=== PATIENT | female | born 1970 | race Caucasian/White ===

== ENCOUNTER 2018-01-19 11:19 | Emergency (ER) | payer BC ==
--- NOTE | 2018-01-19 12:07 | EKG ---
Test Date: 2018-01-19 Test Time: 11:37:29 Senior Electronics Technician: DELORIS MEASUREMENT RESULTS: Intervals: Rate: 103 MO: 148 QRSD: 78 QT: 330 QTc: 432 [place]: P: 70 MO: 148 QRS: 62 T: 43 INTERPRETIVE STATEMENTS: Sinus tachycardia Otherwise normal ECG No previous ECG available for comparison Electronically Signed On 01-19-18 12:06:59 CDT by Eddie Triplett
[2018-01-19 12:09] LABS: Absolute Lymphocytes (CBC) 2.4 K/uL (0.7-4.9); Absolute Monocytes 0.8 K/uL (0.1-1.3); Absolute Neutrophil 11.6 K/uL (1.8-8.0); Basophils % 0.8 % (0-1.3); Eosinophils % 0.9 % (0-4.4); Hematocrit 42.6 % (36.0-45.0); Lymphocytes % 15.9 % (15.3-44.8); MCH 33.4 pg (27.0-35.0); MCV 93.5 fL (80-100); MPV 9.9 fL (7.6-11.3); Monocytes % 5.5 % (3.3-12.3); RBC Red Blood Cell Count 4.56 M/uL (3.86-4.86)
[2018-01-19 12:14] LABS: Protime INR 1.07
[2018-01-19 12:44] LABS: CKMB Creatine Kinase MB 1.3 ng/ml (0.3-4.0); Glucose Level 136 mg/dL (65-120)
[2018-01-19 12:50] LABS: ALT/SGPT 23 IU/L (10-60); AST/SGOT 23 IU/L (10-42); Albumin 4.1 g/dL (3.2-5.5); Alkaline Phosphatase 88 IU/L (42-121); BUN Blood Urea Nitrogen 15 mg/dL (6-20); Bilirubin Direct 0.1 mg/dL (0-0.2); Bilirubin Total 0.5 mg/dL (0.3-1.2); Creatine Phosphokinase 30 IU/L (22-269); Magnesium 1.6 mg/dL (1.8-2.5); Protein, Total 7.1 g/dL (6.0-8.3)
[2018-01-19 12:51] LABS: Bicarbonate 23 mEq/L (21-31); Sodium Level 139 mEq/L (135-145)
[2018-01-19 12:54] LABS: Potassium 2.6 mEq/L (3.6-5.0)
[2018-01-19] MEDS ORDERED: POTASSIUM 25 MEQ EFFERV TAB ONE (13:00)
[2018-01-19] MEDS ORDERED: NA CHLORIDE 0.9% 1,000 ML ONE (13:01)
[2018-01-19] MEDS ORDERED: KCL 20 MEQ/100 mL IVPB 20 MEQ/100 ML BAG IV ONE (13:01)
[2018-01-19] MEDS ORDERED: MAGNESIUM SULFATE 1 gm IVPB 1 GM/100 ML BAG IV ONE (13:01)
--- NOTE | 2018-01-19 13:23 | RAD REPORT ---
EXAM DESCRIPTION: CT - Chest For Pe Angio - 01/19/2018 1:12 pm CLINICAL HISTORY: Chest pain. CHEST PAIN COMPARISON: No comparisons TECHNIQUE: CT angiogram of the pulmonary arteries was performed with MIP. All CT scans are performed using dose optimization technique as appropriate and may include automated exposure control or mA/KV adjustment according to patient size. FINDINGS: No evidence of pulmonary thromboembolism. No acute aortic finding demonstrated. Multiple small areas of ground-glass opacity are present in both lungs likely related to infection or inflammation. No significant pericardial or pleural fluid. Small hiatal hernia is seen with esophageal dilatation a nd mild thickening. No concerning bony finding. IMPRESSION: No evidence of pulmonary thromboembolism. Small bilateral areas of ground-glass opacity are noted. Most likely, this is related to atypical inf ection or inflammation. Follow-up CT chest would be recommended after appropriate therapy to ensure r esolution.
[2018-01-19 13:37] LABS: Urine Blood NEGATIVE (NEG); Urine Glucose NEGATIVE (NEG); Urine Protein NEGATIVE (NEG)
[2018-01-19] MEDS ORDERED: AZITHROMYCIN 250 MG TAB ONE (13:38)
[2018-01-19] MEDS ORDERED: CEFTRIAXONE/SWI 1gm 1 GM/10 ML SYR ONE (13:39)
--- NOTE | 2018-01-19 13:53 | EDPHYS ---
Physician Documentation [facility] Name: Emily Barber Age: 47 yrs Sex: Female : 1970 Arrival Date: 01/19/2018 Time: 11:21 Bed 24 Private MD: out of town, doctor ED Physician Jose Carlos Juarez HPI: 01/19 11:45 This 47 yrs old Female presents to ER via Ambulatory with complaints of Chest snw Pain. 11:45 Onset: The symptoms/episode began/occurred acutely. Associated signs and symptoms: snw Pertinent positives: chest pain, cough. The patient has experienced similar episodes in the past. It is unknown whether or not the patient has recently seen a physician. 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 - Social history:: Smoking status: Patient/guardian denies using tobacco, Patient/guardian denies using alcohol. - Ebola Screening: : Patient negative for fever greater than or equal to 101.5 degrees Fahrenheit, and additional compatible Ebola Virus Disease symptoms Patient denies exposure to infectious person Patient denies travel to an Ebola-affected area in the 21 days before illness onset. ROS: 11:43 Constitutional: Negative for fever, chills, and weight loss, Eyes: Negative for injury, snw pain, redness, and discharge, ENT: Negative for injury, pain, and discharge, Neck: Negative for injury, pain, and swelling, Respiratory: Negative for shortness of breath, cough, wheezing, and pleuritic chest pain, Abdomen/GI: Negative for abdominal pain, nausea, vomiting, diarrhea, and constipation, Back: Negative for injury and pain, : Negative for injury, bleeding, discharge, and swelling, MS/Extremity: Negative for injury and deformity, Skin: Negative for injury, rash, and discoloration, Neuro: Negative for headache, weakness, numbness, tingling, and seizure. 11:43 Cardiovascular: Positive for chest pain. Exam: 11:42 Constitutional: This is a much older than stated age, well nourished patient who is snw awake, alert, and in no acute distress. Eyes: Pupils equal round and reactive to light, extra-ocular motions intact. Lids and lashes normal. Conjunctiva and sclera are non-icteric and not injected. Cornea within normal limits. Periorbital areas with no swelling, redness, or edema. ENT: Nares patent. No nasal discharge, no septal abnormalities noted. Tympanic membranes are normal and external auditory canals are clear. Oropharynx with no redness, swelling, or masses, exudates, or evidence of obstruction, uvula midline. Mucous membranes moist. Neck: Trachea midline, no thyromegaly or masses palpated, and no cervical lymphadenopathy. Supple, full range of motion without nuchal rigidity, or vertebral point tenderness. No Meningismus. Chest/axilla: Normal chest wall appearance and motion. Nontender with no deformity. No lesions are appreciated. Respiratory: Lungs have equal breath sounds bilaterally, clear to auscultation and percussion. No rales, rhonchi or wheezes noted. No increased work of breathing, no retractions or nasal flaring. Abdomen/GI: Soft, non-tender, with normal bowel sounds. No distension or tympany. No guarding or rebound. No evidence of tenderness throughout. Back: No spinal tenderness. No costovertebral tenderness. Full range of motion. Skin: Warm, dry with normal turgor. Normal color with no rashes, no lesions, and no evidence of cellulitis. palmar erythema MS/ Extremity: Pulses equal, no cyanosis. Neurovascular intact. Full, normal range of motion. Neuro: Awake and alert, GCS 15, oriented to person, place, time, and situation. Cranial nerves II-XII grossly intact. Motor strength 5/5 in all extremities. Sensory grossly intact. Cerebellar exam normal. Normal gait. Psych: Awake, alert, with orientation to person, place and time. Behavior, mood, and affect are within normal limits. 11:42 Head/Face: Normocephalic, atraumatic. 11:42 Cardiovascular: Rate: tachycardic. Vital Signs: 11:29 BP 113 / 87; Pulse 114; Resp 18; Temp 98.1(O); Pulse Ox 98% on R/A; Weight 66.22 kg; hj Height 5 ft. 5 in. (165.10 cm); Pain 4/10; 13:05 BP 122 / 75; Pulse 74; Resp 18; Pulse Ox 96% on R/A; aj1 13:29 BP 109 / 64; Pulse 72; Resp 19; Pulse Ox 97% on R/A; aj1 14:30 BP 114 / 79; Pulse 70; Resp 18; Pulse Ox 99% ; aj1 15:30 BP 116 / 72; Pulse 73; Resp 18; Pulse Ox 99% ; aj1 11:29 Body Mass Index 24.29 (66.22 kg, 165.10 cm) MDM: 11:43 Data reviewed: vital signs, nurses notes. Data interpreted: Pulse oximetry: on room air snw is 98 %. Interpretation: normal. Counseling: I had a detailed discussion with the patient and/or guardian regarding: the historical points, exam findings, and any diagnostic results supporting the discharge/admit diagnosis, the presence of at least one elevated blood pressure reading (>120/80) during this emergency department visit. ED course: Pt was told she had a similar electrical problem with her heart that her Mother of, pt has not seen Cardiology. Sees Dr. Winston in [place]. 11:58 Patient medically screened. [facility] 01/19 11:36 Order name: Basic Metabolic Panel; Complete Time: 12:55 snw 01/19 11:36 Order name: BNP; Complete Time: 12:34 snw 01/19 11:36 Order name: CBC with Diff; Complete Time: 12:29 snw 01/19 11:36 Order name: Ckmb; Complete Time: 12:55 snw 01/19 11:36 Order name: CPK; Complete Time: 12:55 snw 01/19 11:36 Order name: LFT's; Complete Time: 12:55 snw 01/19 11:36 Order name: CT Chest For PE Angio; Complete Time: 13:26 snw 01/19 11:36 Order name: Magnesium; Complete Time: 12:55 snw 01/19 11:36 Order name: PT-INR; Complete Time: 12:34 snw 01/19 11:36 Order name: Ptt, Activated; Complete Time: 12:34 snw 01/19 11:36 Order name: Troponin (emerg Dept Use Only); Complete Time: 12:30 snw 01/19 13:28 Order name: Urine Dipstick--Ancillary (enter results); Complete Time: 13:45 bd 01/19 13:28 Order name: Urine --Ancillary (enter results); Complete Time: 13:45 bd 01/19 11:31 Order name: EKG; Complete Time: 11:31 hj 01/19 11:36 Order name: Cardiac monitoring; Complete Time: 12:00 snw 01/19 11:36 Order name: EKG - Nurse/Tech; Complete Time: 12:00 snw 01/19 11:36 Order name: IV Saline Lock; Complete Time: 12:00 snw 01/19 11:36 Order name: Labs collected and sent; Complete Time: 12:00 snw 01/19 11:36 Order name: O2 Per Protocol; Complete Time: 12:00 snw 01/19 11:36 Order name: O2 Sat Monitoring; Complete Time: 12:00 snw 01/19 11:36 Order name: Urine Dipstick-Ancillary (obtain specimen); Complete Time: 13:54 snw Administered Medications: 13:26 Drug: Potassium Effervescent Tablet 50 mEq Route: PO; aj1 13:54 Follow up: Response: No adverse reaction aj1 13:26 Drug: Potassium Chloride 20 mEq Route: IV; Rate: calculated rate; Site: right [facility] antecubital; 15:46 Follow up: IV Status: Completed infusion; IV Intake: 100ml aj1 13:26 Drug: NS 0.9% 1000 ml Route: IV; Rate: 125 ml/hr; Site: right antecubital; aj1 15:45 Follow up: IV Status: Order to discontinue infusion; IV Intake: 275ml aj1 13:27 Drug: Magnesium Sulfate 1 grams Route: IVPB; Infused Over: 1 hrs; Site: right [facility] antecubital; 14:30 Follow up: IV Status: Completed infusion; IV Intake: 100ml aj1 13:40 Drug: Rocephin 1 grams Route: IV; Rate: calculated rate; Site: right antecubital; aj1 13:55 Follow up: Response: No adverse reaction; IV Status: Completed infusion aj1 13:40 Drug: Zithromax 500 mg Route: PO; aj1 13:54 Follow up: Response: No adverse reaction aj1 Disposition: 17:41 Co-signature as Attending Physician, Jose Carlos Juarez MD. Disposition: 01/19/18 13:52 Discharged to Home. Impression: Pneumonia, unspecified organism, Hypomagnesemia, Hypokalemia. - Condition is Stable. - Discharge Instructions: Potassium Content of Foods, Hypomagnesemia, Pneumonia, Adult, Hypokalemia. - Prescriptions for Zithromax 500 mg Oral Tablet - take 1 tablet by ORAL route once daily for 5 days; 5 tablet. - Medication Reconciliation Form, Thank You Letter, Antibiotic Education, Prescription Opioid Use form. - Follow up: Private Physician; When: 2 - 3 days; Reason: Recheck today's complaints, Continuance of care, Re-evaluation by your physician. Follow up: Emergency Department; When: As needed; Reason: Worsening of condition. Signatures: Dispatcher [employer] EDAlanna Brown RN RN aj1 Bashir Cline MD MD cha Therrien, Shelly, DIRECTOR CLINICAL INFORMATION SERVICES-C DIRECTOR CLINICAL INFORMATION SERVICES-Csnw Jesus Power RN RN hj Starr, Gregory, MD MD Corrections: (The following items were deleted from the chart) 15:48 13:52 01/19/2018 13:52 Discharged to Home. Impression: Pneumonia, unspecified organism; aj1 Hypomagnesemia; Hypokalemia. Condition is Stable. Forms are Medication Reconciliation Form, Thank You Letter, Antibiotic Education, Prescription Opioid Use. Follow up: Private Physician; When: 2 - 3 days; Reason: Recheck today's complaints, Continuance of care, Re-evaluation by your physician. Follow up: Emergency Department; When: As needed; Reason: Worsening of condition. snw
--- NOTE | 2018-01-19 13:53 | ER ---
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 Transition of care: patient was not received from another setting of care. Onset of symptoms was January 19, 2018. Risk Assessment: Do you want to hurt yourself or someone else? Patient reports no desire to harm self or others. Initial Sepsis Screen: Does the patient meet any 2 criteria? No. Patient's initial sepsis screen is negative. Does the patient have a suspected source of infection? No. Patient's initial sepsis screen is negative. Care prior to arrival: None. 11:23 Method Of Arrival: Ambulatory 11:23 Acuity: KAMILLA 3 hj Triage Assessment: 11:28 General: Appears in no apparent distress. uncomfortable, Behavior is calm, cooperative, hj appropriate for age. Pain: Complains of pain in chest Pain radiates to back Pain currently is 4 out of 10 on a pain scale. Cardiovascular: Reports chest pain, Capillary refill < 3 seconds Patient's skin is warm and dry. 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 - Social history:: Smoking status: Patient/guardian denies using tobacco, Patient/guardian denies using alcohol. - Ebola Screening: : Patient negative for fever greater than or equal to 101.5 degrees Fahrenheit, and additional compatible Ebola Virus Disease symptoms Patient denies exposure to infectious person Patient denies travel to an Ebola-affected area in the 21 days before illness onset. Screenin:30 Abuse screen: Denies threats or abuse. Denies injuries from another. Nutritional hj screening: No deficits noted. Tuberculosis screening: No symptoms or risk factors identified. Fall Risk None identified. Assessment: 11:30 Pain: Pain began 30 min ago. hj 11:30 General: Appears in no apparent distress. comfortable, Behavior is calm, cooperative, aj1 appropriate for age. Pain: Complains of pain in anterior aspect of left upper chest Pain radiates to back Pain currently is 0 out of 10 on a pain scale. at worst was 8 out of 10 on a pain scale. Quality of pain is described as aching, Pain began weeks ago, but got suddenly worse today Is intermittent, Alleviated by rest, Aggravated by increased activity, repositioning. Neuro: Level of Consciousness is awake, alert, obeys commands, Oriented to person, place, time, situation, Speech is normal, Facial symmetry appears normal. Cardiovascular: Reports chest pain, shortness of breath, Denies diaphoresis, nausea, palpitations, syncope, vomiting, Heart tones S1 S2 present Patient's skin is warm and dry. Rhythm is regular Chest pain is described as mild, quality is aching is located in left anterior chest wall radiates back episodes are intermittent. Respiratory: Reports shortness of breath cough that is non-productive, persistent Airway is patent Respiratory effort is even, unlabored, Respiratory pattern is regular, symmetrical, Breath sounds are clear bilaterally. the patient reports symptoms have resolved. GI: No signs and/or symptoms were reported involving the gastrointestinal system. : No signs and/or symptoms were reported regarding the genitourinary system. EENT: No signs and/or symptoms were reported regarding the EENT system. Derm: No signs and/or symptoms reported regarding the dermatologic system. Skin is pink, warm \T\ dry. normal. Musculoskeletal: No signs and/or symptoms reported regarding the musculoskeletal system. Circulation, motion, and sensation intact. 12:30 Reassessment: Patient appears in no apparent distress at this time. No changes from aj1 previously documented assessment. Patient and/or family updated on plan of care and expected duration. Pain level reassessed. Patient is alert, oriented x 3, equal unlabored respirations, skin warm/dry/pink. 13:28 Reassessment: Patient appears in no apparent distress at this time. No changes from aj1 previously documented assessment. Patient and/or family updated on plan of care and expected duration. Pain level reassessed. Patient is alert, oriented x 3, equal unlabored respirations, skin warm/dry/pink. 13:55 Reassessment: Patient discharge pending completion of IV potassium and magnesium. aj1 14:30 Reassessment: Patient appears in no apparent distress at this time. No changes from aj1 previously documented assessment. Patient and/or family updated on plan of care and expected duration. Pain level reassessed. Patient is alert, oriented x 3, equal unlabored respirations, skin warm/dry/pink. 15:30 Reassessment: Patient appears in no apparent distress at this time. No changes from aj1 previously documented assessment. Patient and/or family updated on plan of care and expected duration. Pain level reassessed. Patient is alert, oriented x 3, equal unlabored respirations, skin warm/dry/pink. Vital Signs: 11:29 BP 113 / 87; Pulse 114; Resp 18; Temp 98.1(O); Pulse Ox 98% on R/A; Weight 66.22 kg; hj Height 5 ft. 5 in. (165.10 cm); Pain 4/10; 13:05 BP 122 / 75; Pulse 74; Resp 18; Pulse Ox 96% on R/A; aj1 13:29 BP 109 / 64; Pulse 72; Resp 19; Pulse Ox 97% on R/A; aj1 14:30 BP 114 / 79; Pulse 70; Resp 18; Pulse Ox 99% ; aj1 15:30 BP 116 / 72; Pulse 73; Resp 18; Pulse Ox 99% ; aj1 11:29 Body Mass Index 24.29 (66.22 kg, 165.10 cm) ED Course: 11:21 Patient arrived in ED. mr 11:21 out of town, doctor is Private Physician. mr 11:25 Triage completed. hj 11:28 Arm band placed on left wrist. hj 11:30 compliance monitor on. Pulse ox on. NIBP on. hj 11:30 Patient has correct armband on for positive identification. Placed in gown. Bed in low aj1 position. Call light in reach. Side rails up X 1. 11:30 Patient maintains SpO2 saturation greater than 95% on room air. hj 11:30 No provider procedures requiring assistance completed. aj1 11:33 Chris, Alanna, RN is Primary Nurse. aj1 11:33 Grace Reyes FNP-C is [facility]. snw 11:34 Jose Carlos Juarez MD is Attending Physician. snw 11:39 Radiology exam delayed due to lab results not completed at this time. (BUN/Creatinine). kw1 11:42 EKG done, by electronics technician apprentice. reviewed by Grace WALLACE. at1 11:47 Initial lab(s) drawn, by me, sent to lab. Inserted saline lock: 20 gauge in left aj1 antecubital area, using aseptic technique. Blood collected. 12:11 Radiology exam delayed due to lab results not completed at this time. (BUN/Creatinine). vm2 12:[address] 13:12 CT completed. Patient tolerated procedure well. Patient moved back from CT. 2 13:12 CT Chest For PE Angio In Process Unspecified. EDMS 15:47 IV discontinued, intact, bleeding controlled, No redness/swelling at site. Pressure aj1 dressing applied. Administered Medications: 13:26 Drug: Potassium Effervescent Tablet 50 mEq Route: PO; aj1 13:54 Follow up: Response: No adverse reaction aj1 13:26 Drug: Potassium Chloride 20 mEq Route: IV; Rate: calculated rate; Site: right aj1 antecubital; 15:46 Follow up: IV Status: Completed infusion; IV Intake: 100ml aj1 13:26 Drug: NS 0.9% 1000 ml Route: IV; Rate: 125 ml/hr; Site: right antecubital; aj1 15:45 Follow up: IV Status: Order to discontinue infusion; IV Intake: 275ml aj1 13:27 Drug: Magnesium Sulfate 1 grams Route: IVPB; Infused Over: 1 hrs; Site: right aj1 antecubital; 14:30 Follow up: IV Status: Completed infusion; IV Intake: 100ml aj1 13:40 Drug: Rocephin 1 grams Route: IV; Rate: calculated rate; Site: right antecubital; aj1 13:55 Follow up: Response: No adverse reaction; IV Status: Completed infusion aj1 13:40 Drug: Zithromax 500 mg Route: PO; aj1 13:54 Follow up: Response: No adverse reaction aj1 Intake: 14:30 IV: 100ml; Total: 100ml. aj1 15:45 IV: 275ml; Total: 375ml. aj1 15:46 IV: 100ml; Total: 475ml. aj1 Outcome: 13:52 Discharge ordered by . w 15:47 Discharged to home ambulatory. aj1 15:47 Condition: good 15:47 Discharge instructions given to patient, Instructed on discharge instructions, follow up and referral plans. medication usage, Demonstrated understanding of instructions, follow-up care, medications, Prescriptions given X 1. 15:48 Patient left the ED. aj1 Signatures: Dispatcher [employer] EDMS Alanna Perez, RN RN aj1 Grace Reyes, TRUCK BODY REPAIRER-C TRUCK BODY REPAIRER-Csnw Hamida Palencia mr Cheikh, Karina Crenshaw, pit supervisor EKG Tat1 Jesus Power RN RN Nusrat Harmon 2 Xochitl De Jesus1 Corrections: (The following items were deleted from the chart) 11:31 11:29 Pulse 114bpm; Resp 18bpm; Pulse Ox 98% RA; Temp 98.1F Oral; 66.22 kg; Height 5 hj ft. 5 in.; BMI: 24.3; Pain 4/10; hj 13:28 12:30 Reassessment: No changes from previously documented assessment. Patient and/or aj1 family updated on plan of care and expected duration. Pain level reassessed. Patient is alert, oriented x 3, equal unlabored respirations, skin warm/dry/pink. Patient is alert/active/playful, equal unlabored respirations, skin warm/dry/pink. aj1 14:53 14:53 BP 114 / 79; Pulse 70bpm; Resp 18bpm; Pulse Ox 99%; aj1 aj1
[2018-01-19] MEDS ORDERED: ONDANSETRON 4 MG (ODT) TAB ONE (14:19)
== END 2018-01-19 15:48 | disposition home or self-care (01) ==
LOC: ER 11:19
DX: J18.9 Pneumonia, unspecified organism (principal); E83.42 Hypomagnesemia; E87.6 Hypokalemia; I10 Essential (primary) hypertension; Z88.8 Allergy status to other drugs, medicaments and biological substances
CPT/HCPCS: 36415; 71275; 80048; 80076; 81003; 81025; 82550; 82553; 83735; 83880; 84484; 85025; 85610; 85730; 93005; 96361; 96365; 96368; 96375; 99285; J0696; J3475; J7030; Q9967

== ENCOUNTER 2018-01-21 14:15 | Emergency (ER) | payer BC ==
[2018-01-21 15:11] LABS: Absolute Lymphocytes (CBC) 2.1 K/uL (0.7-4.9); Absolute Monocytes 0.7 K/uL (0.1-1.3); Absolute Neutrophil 7.5 K/uL (1.8-8.0); Basophils % 0.5 % (0-1.3); Eosinophils % 0.6 % (0-4.4); Hematocrit 44.9 % (36.0-45.0); Lymphocytes % 20.6 % (15.3-44.8); MCH 32.3 pg (27.0-35.0); MPV 9.8 fL (7.6-11.3); Monocytes % 6.6 % (3.3-12.3); RBC Red Blood Cell Count 4.68 M/uL (3.86-4.86)
[2018-01-21 15:20] LABS: Protime INR 1.09
[2018-01-21 15:29] LABS: ALT/SGPT 34 U/L (12-78); AST/SGOT 17 U/L (15-37); Albumin 3.7 g/dL (3.4-5.0); Alkaline Phosphatase 96 U/L (45-117); BUN Blood Urea Nitrogen 13 mg/dL (7-18); Bicarbonate 22 mmol/L (21-32); Bilirubin Direct < 0.1 mg/dL (0-0.2); Bilirubin Total 0.4 mg/dL (0.2-1.0); Creatine Phosphokinase 27 U/L (26-192); Glucose Level 75 mg/dL (74-106); Potassium 3.3 mmol/L (3.5-5.1); Sodium Level 139 mmol/L (136-145)
[2018-01-21 15:30] LABS: Urine Blood NEGATIVE (NEG); Urine Glucose NEGATIVE (NEG); Urine Protein 1+ (NEG); Urine Specific Gravity >1.030 (1.005-1.030)
[2018-01-21] MEDS ORDERED: NA CHLORIDE 0.9% 1,000 ML ONE (15:39)
[2018-01-21] MEDS ORDERED: POTASSIUM CL SA 10 MEQ TAB PO ONE (15:39)
--- NOTE | 2018-01-21 17:25 | EDPHYS ---
Physician Documentation [facility] Name: Emily Barber Age: 47 yrs Sex: Female : 1970 Arrival Date: 01/21/2018 Time: 14:18 Bed 8 Private MD: ED Physician Nick Souza HPI: 01/21 16:56 This 47 yrs old Female presents to ER via EMS with complaints of General wa Weakness, Decreased Appetite. 16:56 The patient's problem is reported as weakness, that is generalized, loss of appetite. wa Onset: The symptoms/episode began/occurred 1 week(s) ago, seen here 2 days ago. Duration: This was a single incident, The episode is continuous. Context: Possible contributing factors include: unknown. The symptoms are alleviated by nothing. The symptoms are aggravated by nothing. Associated signs and symptoms: Pertinent positives: weakness, Pertinent negatives: abdominal pain, diarrhea, dizziness. Severity of symptoms: At their worst the symptoms were moderate in the emergency department the symptoms are unchanged. Patient's baseline: Neuro: alert and fully oriented, Motor: no deficits, Ambulation: walks without assistance, Speech: normal. The patient has experienced a previous episode, seen here 2 days ago for same. . The patient has been recently seen by a physician: here. 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 tw2 Historical: - Allergies: 14:23 Pyridium; tw2 14:23 Pyridium; ph - Home Meds: 14:23 Zithromax Z-Alonzo 250 mg Oral tab 1 tab once daily [Active]; tw2 14:23 Metoprolol Tartrate Oral [Active]; Clonazepam Oral [Active]; Prozac Oral [Active]; ph - PMHx: 14:23 Hypertension; Anxiety; Depression; ph - PSHx: 14:23 Cholecystectomy; ; Hysterectomy; Lumpectomy; Lithotripsy; ph - Immunization history:: Adult Immunizations up to date, Adult Immunizations unknown. - Social history:: Smoking status: Patient uses tobacco products, smokes one pack cigarettes per day. "quit about a week ago". - Ebola Screening: : Patient denies travel to an Ebola-affected area in the 21 days before illness onset. - Family history:: not pertinent. - Hospitalizations: : No recent hospitalization is reported. ROS: 17:20 Constitutional: Negative for fever, chills, and weight loss, Eyes: Negative for injury, wa pain, redness, and discharge, ENT: Negative for injury, pain, and discharge, Neck: Negative for injury, pain, and swelling, Respiratory: Negative for shortness of breath, cough, wheezing, and pleuritic chest pain, Abdomen/GI: Negative for abdominal pain, nausea, vomiting, diarrhea, and constipation, Back: Negative for injury and pain, : Negative for injury, bleeding, discharge, and swelling, MS/Extremity: Negative for injury and deformity, Skin: Negative for injury, rash, and discoloration. 17:20 Cardiovascular: Positive for palpitations. 17:20 Neuro: Positive for weakness, Negative for dizziness, gait disturbance, headache. Exam: 17:21 Constitutional: This is a well developed, well nourished patient who is awake, alert, wa and in no acute distress. Head/Face: Normocephalic, atraumatic. Eyes: Pupils equal round and reactive to light, extra-ocular motions intact. Lids and lashes normal. Conjunctiva and sclera are non-icteric and not injected. Cornea within normal limits. Periorbital areas with no swelling, redness, or edema. ENT: Nares patent. No nasal discharge, no septal abnormalities noted. Tympanic membranes are normal and external auditory canals are clear. Oropharynx with no redness, swelling, or masses, exudates, or evidence of obstruction, uvula midline. Mucous membranes moist. Neck: Trachea midline, no thyromegaly or masses palpated, and no cervical lymphadenopathy. Supple, full range of motion without nuchal rigidity, or vertebral point tenderness. No Meningismus. Chest/axilla: Normal chest wall appearance and motion. Nontender with no deformity. No lesions are appreciated. Cardiovascular: Regular rate and rhythm with a normal S1 and S2. No gallops, murmurs, or rubs. Normal PMI, no JVD. No pulse deficits. Respiratory: Lungs have equal breath sounds bilaterally, clear to auscultation and percussion. No rales, rhonchi or wheezes noted. No increased work of breathing, no retractions or nasal flaring. Abdomen/GI: Soft, non-tender, with normal bowel sounds. No distension or tympany. No guarding or rebound. No evidence of tenderness throughout. Back: No spinal tenderness. No costovertebral tenderness. Full range of motion. Female : Normal external genitalia. Skin: Warm, dry with normal turgor. Normal color with no rashes, no lesions, and no evidence of cellulitis. MS/ Extremity: Pulses equal, no cyanosis. Neurovascular intact. Full, normal range of motion. Neuro: Awake and alert, GCS 15, oriented to person, place, time, and situation. Cranial nerves II-XII grossly intact. Motor strength 5/5 in all extremities. Sensory grossly intact. Cerebellar exam normal. Normal gait. Psych: Awake, alert, with orientation to person, place and time. Behavior, mood, and affect are within normal limits. 17:21 Neuro: Orientation: is normal, Mentation: is normal, Cranial nerves: grossly normal, Cerebellar function: is grossly normal, Motor: is normal, Sensation: is normal, Gait: is steady. Vital Signs: 14:18 Temp 98.1(O); tw2 14:21 BP 131 / 68; Pulse 93; Resp 17; Pulse Ox 98% ; tw2 15:22 BP 116 / 71; Pulse 63; Resp 17; Pulse Ox 98% on R/A; tw2 16:24 BP 124 / 76; Pulse 61; Resp 18; Pulse Ox 100% on R/A; tw2 17:13 BP 122 / 69; Pulse 73; Resp 17; Pulse Ox 98% on R/A; tw2 MDM: 14:23 Patient medically screened. la 17:22 Differential diagnosis: metabolic disorder, drug effects, r/o infection. r/o cardiac wa abnml. Data reviewed: vital signs, nurses notes, lab test result(s), EKG, radiologic studies. Test interpretation: by ED physician or midlevel provider: labs noted for ketonuria. EKG noted within nml limits. noted hypokalemia. . Response to treatment: the patient's symptoms have markedly improved after treatment. ED course: replaced K. fluids given. 01/21 14:44 Order name: Basic Metabolic Panel; Complete Time: 15:33 01/21 14:44 Order name: CBC with Diff; Complete Time: 15:33 01/21 14:44 Order name: CPK; Complete Time: 15:33 01/21 14:44 Order name: LFT's; Complete Time: 15:01/21 14:44 Order name: Magnesium; Complete Time: 15:33 la 01/21 14:44 Order name: PT-INR; Complete Time: 15:33 la 01/21 14:44 Order name: Troponin (emerg Dept Use Only); Complete Time: 15:33 la 01/21 14:44 Order name: XRAY Chest (1 view) 01/21 14:44 Order name: EKG; Complete Time: 14:45 la 01/21 14:44 Order name: Cardiac monitoring; Complete Time: 14:45 la 01/21 15:24 Order name: Urine Dipstick--Ancillary (enter results); Complete Time: 15:33 [facility] 01/21 15:24 Order name: Urine --Ancillary (enter results); Complete Time: 15:33 [facility] 01/21 14:44 Order name: EKG - Nurse/Tech; Complete Time: 14:45 la 01/21 14:44 Order name: IV Saline Lock; Complete Time: 14:45 la 01/21 14:44 Order name: Labs collected and sent; Complete Time: 16:02 la 01/21 14:44 Order name: O2 Per Protocol; Complete Time: 14:45 la 01/21 14:44 Order name: O2 Sat Monitoring; Complete Time: 14:45 la 01/21 14:44 Order name: Urine Dipstick-Ancillary (obtain specimen); Complete Time: 15:24 la Administered Medications: 15:41 Drug: Potassium Chloride 40 mEq Route: PO; tw2 17:32 Follow up: Response: No adverse reaction tw2 15:41 Drug: NS 0.9% 1000 ml Route: IV; Rate: 1 bolus; Site: left antecubital; tw2 17:32 Follow up: Response: No adverse reaction; IV Status: Completed infusion; IV Intake: tw2 1000ml Disposition: 01/21/18 17:24 Discharged to Home. Impression: Weakness, hypokalemia, dehydration. - Condition is Stable. - Discharge Instructions: Weakness, Chyy-oc-Xzfd, Dehydration, Adult, Izpy-yi-Vgab, Hypokalemia. - Prescriptions for Zofran 4 mg Oral Tablet - take 1 tablet by ORAL route every 12 hours As needed; 6 tablet. Potassium Chloride 10 mEq Oral Capsule, Sustained Release - take 1 tablet by ORAL route every 12 hours; 6 tablet. - Work release form, Medication Reconciliation Form, Thank You Letter, Antibiotic Education, Prescription Opioid Use form. - Follow up: Private Physician; When: 2 - 3 days; Reason: Recheck today's complaints. - Problem is new. - Symptoms have improved. Signatures: Dispatcher [employer] Clair Talley RN RN ph Katty Gibson RN RN tw2 Nick Souza MD MD wa Corrections: (The following items were deleted from the chart) 17:38 17:24 01/21/2018 17:24 Discharged to Home. Impression: Weakness; hypokalemia; tw2 dehydration. Condition is Stable. Forms are Medication Reconciliation Form, Thank You Letter, Antibiotic Education, Prescription Opioid Use. Follow up: Private Physician; When: 2 - 3 days; Reason: Recheck today's complaints. Problem is new. Symptoms have improved. wa
--- NOTE | 2018-01-21 17:25 | ER ---
Nurse's Notes [facility] Name: Emily Barber Age: 47 yrs Sex: Female : 1970 Arrival Date: 01/21/2018 Time: 14:18 Bed 8 Private MD: Diagnosis: Weakness;hypokalemia;dehydration Presentation: 01/21 14:18 Presenting complaint: EMS states: C/O generalized weakness and palpitations, hx of ph anxiety and recently took herself off of medication, BP 129/80, HR 80, BGL 73, 12 lead normal. Transition of care: patient was not received from another setting of care. Onset of symptoms was January 21, 2018. Risk Assessment: Do you want to hurt yourself or someone else? Patient reports no desire to harm self or others. Initial Sepsis Screen: Does the patient meet any 2 criteria? No. Patient's initial sepsis screen is negative. Does the patient have a suspected source of infection? No. Patient's initial sepsis screen is negative. Care prior to arrival: IV initiated. 20 GA, in the left antecubital area. 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 tw2 Historical: - Allergies: 14:23 Pyridium; tw2 14:23 Pyridium; ph - Home Meds: 14:23 Zithromax Z-Alonzo 250 mg Oral tab 1 tab once daily [Active]; tw2 14:23 Metoprolol Tartrate Oral [Active]; Clonazepam Oral [Active]; Prozac Oral [Active]; ph - PMHx: 14:23 Hypertension; Anxiety; Depression; ph - PSHx: 14:23 Cholecystectomy; ; Hysterectomy; Lumpectomy; Lithotripsy; ph - Immunization history:: Adult Immunizations up to date, Adult Immunizations unknown. - Social history:: Smoking status: Patient uses tobacco products, smokes one pack cigarettes per day. "quit about a week ago". - Ebola Screening: : Patient denies travel to an Ebola-affected area in the 21 days before illness onset. - Family history:: not pertinent. - Hospitalizations: : No recent hospitalization is reported. Screenin:21 Abuse screen: Denies threats or abuse. Nutritional screening: No deficits noted. tw2 Tuberculosis screening: No symptoms or risk factors identified. Fall Risk None identified. Assessment: 14:24 General: Appears in no apparent distress. slender, Behavior is appropriate for age. tw2 Pain: Complains of pain in right leg and left leg. Neuro: Level of Consciousness is awake, alert, obeys commands, Oriented to person, place, time, situation. Cardiovascular: Heart tones S1 S2 Capillary refill < 3 seconds Patient's skin is warm and dry. Respiratory: Airway is patent Respiratory effort is even, unlabored, Respiratory pattern is regular, symmetrical, Breath sounds are clear bilaterally. GI: Abdomen is flat, Bowel sounds present X 4 quads. Reports nausea. : No signs and/or symptoms were reported regarding the genitourinary system. EENT: No signs and/or symptoms were reported regarding the EENT system. Derm: No signs and/or symptoms reported regarding the dermatologic system. Skin is intact, is healthy with good turgor, Skin temperature is warm. Musculoskeletal: Range of motion: intact in all extremities. 15:22 Reassessment: Patient appears in no apparent distress at this time. No changes from tw2 previously documented assessment. Patient and/or family updated on plan of care and expected duration. Pain level reassessed. Patient is alert, oriented x 3, equal unlabored respirations, skin warm/dry/pink. 16:25 Reassessment: Patient appears in no apparent distress at this time. No changes from tw2 previously documented assessment. Patient and/or family updated on plan of care and expected duration. Pain level reassessed. Patient is alert, oriented x 3, equal unlabored respirations, skin warm/dry/pink. 17:16 Reassessment: Patient appears in no apparent distress at this time. No changes from tw2 previously documented assessment. Patient and/or family updated on plan of care and expected duration. Pain level reassessed. Patient is alert, oriented x 3, equal unlabored respirations, skin warm/dry/pink. 17:37 Reassessment: Patient appears in no apparent distress at this time. No changes from tw2 previously documented assessment. Patient and/or family updated on plan of care and expected duration. Pain level reassessed. Patient is alert, oriented x 3, equal unlabored respirations, skin warm/dry/pink. Vital Signs: 14:18 Temp 98.1(O); tw2 14:21 BP 131 / 68; Pulse 93; Resp 17; Pulse Ox 98% ; tw2 15:22 BP 116 / 71; Pulse 63; Resp 17; Pulse Ox 98% on R/A; tw2 16:24 BP 124 / 76; Pulse 61; Resp 18; Pulse Ox 100% on R/A; tw2 17:13 BP 122 / 69; Pulse 73; Resp 17; Pulse Ox 98% on R/A; tw2 ED Course: 14:18 Patient arrived in ED. ph 14:19 Arm band placed on. tw2 14:19 Placed in gown. Bed in low position. Call light in reach. Pulse ox on. NIBP on. tw2 14:21 Katty Gibson, RN is Primary Nurse. tw2 14:21 Triage completed. ph 14:23 Nick Souza MD is Attending Physician. wa 14:45 Inserted saline lock: 20 gauge in left antecubital area, using aseptic technique. jp3 ,using aseptic technique. IV placed by EMS. 14:50 Initial lab(s) drawn, by tn, sent to lab. jp3 15:05 EKG done, by electrical assembly technician. reviewed by Nick Souza MD. tc 15:05 Urine collected: clean catch specimen, clear, iman colored. jp3 15:23 X-ray completed. Portable x-ray completed in exam room. Patient tolerated procedure kc2 well. 15:45 XRAY Chest (1 view) In Process Unspecified. EDMS 17:37 No provider procedures requiring assistance completed. IV discontinued, intact, tw2 bleeding controlled, No redness/swelling at site. Pressure dressing applied. Administered Medications: 15:41 Drug: Potassium Chloride 40 mEq Route: PO; tw2 17:32 Follow up: Response: No adverse reaction tw2 15:41 Drug: NS 0.9% 1000 ml Route: IV; Rate: 1 bolus; Site: left antecubital; tw2 17:32 Follow up: Response: No adverse reaction; IV Status: Completed infusion; IV Intake: tw2 1000ml Intake: 17:32 IV: 1000ml; Total: 1000ml. tw2 Outcome: 17:24 Discharge ordered by . wa 17:37 Discharged to home ambulatory, with family. tw2 17:37 Condition: stable 17:37 Discharge instructions given to patient, family, Instructed on discharge instructions, follow up and referral plans. medication usage, Demonstrated understanding of instructions, follow-up care, medications, Prescriptions given X 2. 17:38 Patient left the ED. tw2 Signatures: Dispatcher [employer] EDKY Beatrice Webb, ceramic saw tender EKG [facility] Clair Hanson RN RN Katty Gibson RN RN tw2 Paige Cueva kc2 Nick Souza MD MD nv Alber Ortega jp3
--- NOTE | 2018-01-21 18:49 | RAD REPORT ---
EXAM DESCRIPTION: RAD - Chest Single View - 01/21/2018 3:44 pm CLINICAL HISTORY: Weakness, shortness of breath COMPARISON: CT chest January 19 TECHNIQUE: AP portable chest image was obtained 1522 hours . FINDINGS: No consolidation, mass or significant lung parenchymal finding. There is no evidence that the lung parenchymal opacity seen January 19 have progressed. He has areas are not well visualized on pl ain film. No failure or volume overload. Heart and vasculature are normal. No measurable pleural effu deborah and no pneumothorax. No gross bony abnormality seen. No acute aortic findings suspected. IMPRESSION: No acute cardiopulmonary process identifiable. No new or progressive finding from the CT study.
--- NOTE | 2018-01-22 06:38 | EKG ---
Test Date: 2018-01-21 Test Time: 15:00:04 Training And Quality Manager: SARAH/ MEASUREMENT RESULTS: Intervals: Rate: 71 NM: 122 QRSD: 74 QT: 388 QTc: 421 [place]: P: 50 NM: 122 QRS: 47 T: 42 INTERPRETIVE STATEMENTS: Normal sinus rhythm Normal ECG Compared to ECG 01/19/2018 11:37:29 Sinus tachycardia no longer present Electronically Signed On 01-22-18 06:37:33 CDT by Eddie Triplett
== END 2018-01-21 17:38 | disposition home or self-care (01) ==
LOC: ER 14:15
DX: R53.1 Weakness (principal); E87.6 Hypokalemia; E86.0 Dehydration; R63.0 Anorexia; Z88.8 Allergy status to other drugs, medicaments and biological substances; I10 Essential (primary) hypertension; F17.210 Nicotine dependence, cigarettes, uncomplicated
CPT/HCPCS: 36415; 71045; 80048; 80076; 81003; 81025; 82550; 83735; 84484; 85025; 85610; 93005; 96360; 96361; 99284; J7030

== ENCOUNTER 2018-01-27 02:05 | Emergency (ER) | payer BC ==
[2018-01-27] MEDS ORDERED: NA CHLORIDE 0.9% 1,000 ML ONE (02:55)
[2018-01-27 03:45] LABS: Urine Specific Gravity 1.015 (1.005-1.030)
[2018-01-27 03:46] LABS: Urine Blood TRACE (NEG); Urine Glucose NEGATIVE (NEG); Urine Protein 2+ (NEG); Urine Specific Gravity 1.015 (1.005-1.030); Urine pH 5.5 (5.0-7.0)
[2018-01-27 04:01] LABS: Barbiturates NEGATIVE (NEGATIVE); Benzodiazepines NEGATIVE (NEGATIVE); Cocaine NEGATIVE (NEGATIVE); METHAMPHETAM NEGATIVE (NEGATIVE); Methadone NEGATIVE (NEGATIVE); Opiates NEGATIVE (NEGATIVE); Phencyclidine NEGATIVE (NEGATIVE); THC Cannibis NEGATIVE (NEGATIVE)
[2018-01-27 04:27] LABS: Absolute Lymphocytes (CBC) 2.9 K/uL (0.7-4.9); Absolute Monocytes 0.9 K/uL (0.1-1.3); Absolute Neutrophil 9.7 K/uL (1.8-8.0); Basophils % 0.4 % (0-1.3); Eosinophils % 0.3 % (0-4.4); Hematocrit 41.8 % (36.0-45.0); Lymphocytes % 21.5 % (15.3-44.8); MPV 9.5 fL (7.6-11.3); Monocytes % 6.3 % (3.3-12.3)
[2018-01-27 05:22] LABS: Protime INR 1.11
[2018-01-27 06:15] LABS: ALT/SGPT 33 U/L (12-78); AST/SGOT 18 U/L (15-37); Albumin 3.5 g/dL (3.4-5.0); Alcohol Serum/Plasma 5 mg/dL (0-3); Alkaline Phosphatase 71 U/L (45-117); BUN Blood Urea Nitrogen 5 mg/dL (7-18); Bicarbonate 29 mmol/L (21-32); Bilirubin Direct < 0.1 mg/dL (0-0.2); Bilirubin Total 0.3 mg/dL (0.2-1.0); Glucose Level 86 mg/dL (74-106); Sodium Level 141 mmol/L (136-145)
[2018-01-27 06:16] LABS: Potassium 2.5 mmol/L (3.5-5.1)
[2018-01-27] MEDS ORDERED: POTASSIUM CL SA 10 MEQ TAB PO ONE (06:31)
--- NOTE | 2018-01-27 07:31 | EDPHYS ---
Physician Documentation [facility] Name: Emily Barber Age: 47 yrs Sex: Female : 1970 Arrival Date: 01/27/2018 Time: 02:11 Bed 20 Private MD: ED Physician Bashir Cline HPI: 01/27 02:51 This 47 yrs old Female presents to ER via Ambulatory with complaints of rn UNABLE TO SLEEP, hallucinations. 02:51 Onset: The symptoms/episode began/occurred at an unknown time. Associated signs and rn symptoms: Pertinent positives; hallucinations, Pertinent negatives: homicidal ideation, suicide ideation. Severity of symptoms: At their worst the symptoms were moderate in the emergency department the symptoms are unchanged. The patient has not experienced similar symptoms in the past. Reports several days of hallucinations, hearing voices, not suicidal/homicidal, had head injury 4 days ago, hit head on cabinet, no drug use, no sleep since began.. 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 - Social history:: Smoking status: Patient uses tobacco products, smokes one pack cigarettes per day. Patient/guardian denies using alcohol, street drugs. - Ebola Screening: : Patient negative for fever greater than or equal to 101.5 degrees Fahrenheit, and additional compatible Ebola Virus Disease symptoms Patient denies exposure to infectious person Patient denies travel to an Ebola-affected area in the 21 days before illness onset. - Family history:: not pertinent. - Hospitalizations: : No recent hospitalization is reported. ROS: 02:51 Constitutional: Negative for fever, chills, and weight loss, Eyes: Negative for injury, rn pain, redness, and discharge, Neck: Negative for injury, pain, and swelling, Cardiovascular: Negative for chest pain, palpitations, and edema, Respiratory: Negative for shortness of breath, cough, wheezing, and pleuritic chest pain, Abdomen/GI: Negative for abdominal pain, nausea, vomiting, diarrhea, and constipation, MS/Extremity: Negative for injury and deformity, Skin: Negative for injury, rash, and discoloration, Neuro: Negative for headache, weakness, numbness, tingling, and seizure. Exam: 02:51 Constitutional: This is a well developed, well nourished patient who is awake, alert, rn and in no acute distress. Head/Face: Normocephalic, atraumatic. Eyes: Pupils equal round and reactive to light, extra-ocular motions intact. Lids and lashes normal. Conjunctiva and sclera are non-icteric and not injected. Cornea within normal limits. Periorbital areas with no swelling, redness, or edema. Neck: Trachea midline, no thyromegaly or masses palpated, and no cervical lymphadenopathy. Supple, full range of motion without nuchal rigidity, or vertebral point tenderness. No Meningismus. Cardiovascular: Regular rate and rhythm with a normal S1 and S2. No gallops, murmurs, or rubs. Normal PMI, no JVD. No pulse deficits. Respiratory: Lungs have equal breath sounds bilaterally, clear to auscultation and percussion. No rales, rhonchi or wheezes noted. No increased work of breathing, no retractions or nasal flaring. Abdomen/GI: Soft, non-tender, with normal bowel sounds. No distension or tympany. No guarding or rebound. No evidence of tenderness throughout. MS/ Extremity: Pulses equal, no cyanosis. Neurovascular intact. Full, normal range of motion. Equal circumference. Neuro: Awake and alert, GCS 15, oriented to person, place, time, and situation. Cranial nerves II-XII grossly intact. Motor strength 5/5 in all extremities. Sensory grossly intact. Cerebellar exam normal. Normal gait. Psych: Awake, alert, with orientation to person, place and time. Reports auditory hallucinations. Vital Signs: 02:10 BP 108 / 65; Pulse 108; Resp 18; Temp 98.5(O); Pulse Ox 97% on R/A; Weight 66.68 kg fc (R); Height 5 ft. 5 in. (165.10 cm) (R); Pain 0/10; 03:30 BP 110 / 63; Pulse 70; Resp 16; Pulse Ox 99% on R/A; lp1 04:30 BP 127 / 73; Pulse 60; Resp 16; Pulse Ox 99% on R/A; lp1 05:30 BP 107 / 61; Pulse 82; Resp 16; Pulse Ox 96% on R/A; lp1 06:37 BP 114 / 72; Pulse 80; Resp 16; Pulse Ox 98% on R/A; lp1 07:28 BP 123 / 68; Pulse 72; Resp 17; Pulse Ox 97% on R/A; dh3 08:30 BP 118 / 78; Pulse 76; Resp 18; Pulse Ox 99% on R/A; ph 09:30 BP 122 / 72; Pulse 81; Resp 18; Temp 98.0; Pulse Ox 99% on R/A; ph 02:10 Body Mass Index 24.46 (66.68 kg, 165.10 cm) fc MDM: 02:29 Patient medically screened. rn 06:57 Differential diagnosis: acute psychotic break. Data reviewed: vital signs, nurses rn notes, lab test result(s). ED course: Pt pending mental health evaluation, not suicidal/homicidal, + hallucinations.. 07:01 Transition of care: After a detail discussion of the patient's case, care is rn transferred to Bashir Cline MD. 01/27 02:45 Order name: Acetaminophen; Complete Time: 07:00 rn 01/27 02:45 Order name: Basic Metabolic Panel; Complete Time: 07:00 rn 01/27 02:45 Order name: CBC with Diff; Complete Time: 05:43 01/27 02:45 Order name: ETOH Level; Complete Time: 07:00 rn 01/27 02:45 Order name: Hepatic Function; Complete Time: 07:00 rn 01/27 02:45 Order name: PT-INR; Complete Time: 05:43 rn 01/27 02:45 Order name: Ptt, Activated; Complete Time: 05:43 rn 01/27 02:45 Order name: Salicylate; Complete Time: 05:43 rn 01/27 02:45 Order name: Urine Drug Screen; Complete Time: 04:15 rn 01/27 03:38 Order name: Urine Dipstick--Ancillary (enter results); Complete Time: 04:15 eb 01/27 03:41 Order name: Urine --Ancillary (enter results); Complete Time: 04:15 eb 01/27 10:46 Order name: Basic Metabolic Panel 01/27 02:45 Order name: Urine Test (obtain specimen); Complete Time: 03:47 rn 01/27 02:45 Order name: EKG; Complete Time: 02:46 rn 01/27 02:45 Order name: EKG - Nurse/Tech; Complete Time: 03:47 rn 01/27 02:45 Order name: IV Saline Lock; Complete Time: 03:13 rn 01/27 02:45 Order name: Labs collected and sent; Complete Time: 03:13 rn 01/27 02:45 Order name: CT Head Brain wo Cont; Complete Time: 08:28 rn 01/27 07:32 Order name: Diet Regular; Complete Time: 07:34 bd 01/27 07:33 Order name: Diet Regular; Complete Time: 07:34 arina 01/27 10:46 Order name: Phosphorus ss 01/27 02:45 Order name: Urine Dipstick-Ancillary (obtain specimen); Complete Time: 03:48 rn Administered Medications: 03:30 Drug: NS 0.9% 1000 ml Route: IV; Rate: 1000 ml; Site: right antecubital; lp1 05:00 Follow up: IV Status: Completed infusion; IV Intake: 1000ml lp1 06:36 Drug: Potassium Chloride 40 mEq Route: PO; lp1 10:08 Follow up: Response: No adverse reaction ph 10:08 Not Given (Patient Refused): Potassium Chloride 20 mEq IV at per protocol once; ph administer over 1-2 hours 10:08 Not Given (Patient Refused): Potassium Effervescent Tablet 50 mEq PO once; dissolve in ph 4 ounces of water or juice 10:08 Not Given (Patient Refused): NS 0.9% with KCl 20 mEq/L 1000 ml IV at 125 ml/hr ph continuous Disposition: 01/27/18 09:01 Discharged to Home. Impression: Anxiety disorder, unspecified, Adjustment disorder with depressed mood, Insomnia, Hypokalemia. - Condition is Stable. - Discharge Instructions: Panic Attacks, Depression, Adult, Potassium Content of Foods, Panic Attacks, [id number], Psychosis, Depression, Adult, [id number], Hypokalemia. - Medication Reconciliation Form, Thank You Letter, Antibiotic Education, Prescription Opioid Use form. - Follow up: Private Physician; When: 2 - 3 days; Reason: Recheck today's complaints, Re-evaluation by your physician. - Problem is new. - Symptoms have improved. Signatures: Dispatcher [employer] EDMS Bashir Cline MD MD cha Chretien, Felicia, RN RN Real Snell MD MD rn Pena, Laura, RN RN lp1 Clair Hanson RN RN ph Corrections: (The following items were deleted from the chart) 09:01 07:30 01/27/2018 07:30 Transfer ordered to [facility]. Diagnosis is arina Puerperal psychosis; Major depressive disorder, recurrent; Insomnia. Reason for transfer: Higher level of care. Accepting physician is to psych. Rastafari. Condition is Stable. Problem is new. Symptoms are unchanged. arina 09:02 09:01 01/27/2018 09:01 Discharged to Home. Impression: Anxiety disorder, unspecified; arina Adjustment disorder with depressed mood; Insomnia. Condition is Stable. Forms are Medication Reconciliation Form, Thank You Letter, Antibiotic Education, Prescription Opioid Use. Follow up: Private Physician; When: 2 - 3 days; Reason: Recheck today's complaints, Re-evaluation by your physician. Problem is new. Symptoms have improved. [facility] 10:37 07:33 PHOSPHORUS+C.LAB.BRZ ordered. EDKY EDMS 10:37 07:34 BASIC METABOLIC PANEL+C.LAB.BRZ ordered. EDKY EDMS 11:20 09:02 01/27/2018 09:01 Discharged to Home. Impression: Anxiety disorder, unspecified; ph Adjustment disorder with depressed mood; Insomnia; Hypokalemia. Condition is Stable. Forms are Medication Reconciliation Form, Thank You Letter, Antibiotic Education, Prescription Opioid Use. Follow up: Private Physician; When: 2 - 3 days; Reason: Recheck today's complaints, Re-evaluation by your physician. Problem is new. Symptoms have improved. arina
--- NOTE | 2018-01-27 07:31 | ER ---
Nurse's Notes [facility] Name: Emily Barber Age: 47 yrs Sex: Female : 1970 Arrival Date: 01/27/2018 Time: 02:11 Bed 20 Private MD: Diagnosis: Anxiety disorder, unspecified;Adjustment disorder with depressed mood;Insomnia;Hypokalemia Presentation: 01/27 02:10 Acuity: KAMILLA 3 fc 02:10 Presenting complaint: Patient states: that she has been seeing and talking to people that are not there. S. O. states that it has gotten worse over the past 3 weeks. Pt states that she is only sleeping a couple of hours a night. She denies being suicidal or homicidal. Has recently stopped her Klonopin, [place], Prozac and muscle relaxer and took them to the police dept. Transition of care: patient was not received from another setting of care. Onset of symptoms was January 06, 2018. Risk Assessment: Do you want to hurt yourself or someone else? Patient reports no desire to harm self or others. Initial Sepsis Screen: Does the patient meet any 2 criteria? HR > 90 bpm. Does the patient have a suspected source of infection? No. Patient's initial sepsis screen is negative. Care prior to arrival: None. 02:10 Method Of Arrival: Ambulatory fc GENETICIST: 02:10 LMP N/A - Hysterectomy Historical: - Allergies: 02:37 Pyridium; fc - Home Meds: 02:37 None [Active]; fc - PMHx: 02:37 Anxiety; Depression; Hypertension; Pneumonia; Back pain; broken back; fc - PSHx: 02:37 ; Cholecystectomy; Hysterectomy; fc - Immunization history:: Last tetanus immunization: unknown. - Social history:: Smoking status: Patient uses tobacco products, smokes one pack cigarettes per day. Patient/guardian denies using alcohol, street drugs. - Ebola Screening: : Patient negative for fever greater than or equal to 101.5 degrees Fahrenheit, and additional compatible Ebola Virus Disease symptoms Patient denies exposure to infectious person Patient denies travel to an Ebola-affected area in the 21 days before illness onset. - Family history:: not pertinent. - Hospitalizations: : No recent hospitalization is reported. Screenin:35 Abuse screen: Denies threats or abuse. Nutritional screening: No deficits noted. fc Tuberculosis screening: No symptoms or risk factors identified. Fall Risk None identified. Assessment: 02:30 General: Appears in no apparent distress. Behavior is calm, cooperative. Pain: Denies lp1 pain. Neuro: Level of Consciousness is awake, alert, obeys commands, Oriented to person, place, situation, Reports hallucinations of the "Coming of Jf". Cardiovascular: Patient's skin is warm and dry. Respiratory: Respiratory effort is even, unlabored. GI: No signs and/or symptoms were reported involving the gastrointestinal system. : No signs and/or symptoms were reported regarding the genitourinary system. EENT: No signs and/or symptoms were reported regarding the EENT system. Derm: Skin is pink, warm \\T\\ dry. Musculoskeletal: Circulation, motion, and sensation intact. 03:17 Reassessment: Patient's and daughter, Humberto and Melissa, are going home at this lp1 time, left phone number, , [phone]. 04:30 Reassessment: Patient appears in no apparent distress at this time. Patient and/or lp1 family updated on plan of care and expected duration. Pain level reassessed. Patient resting, eyes closed, respirations unlabored. 05:30 Reassessment: Patient appears in no apparent distress at this time. No changes from lp1 previously documented assessment. 05:57 Reassessment: lAis Burton at bedside to discuss results with patient. lp1 08:00 Reassessment: Patient appears in no apparent distress at this time. Patient and/or ph family updated on plan of care and expected duration. Pain level reassessed. Patient is alert, oriented x 3, equal unlabored respirations, skin warm/dry/pink. Pt resting quietly, attempted to start another IV but pt refused, states, " The doctor told me I was fine. I thought I could go home. Why do I need another IV and bloodwork? Can I talk to the doctor?". 08:45 Reassessment: Patient appears in no apparent distress at this time. Patient and/or ph family updated on plan of care and expected duration. Pain level reassessed. Patient is alert, oriented x 3, equal unlabored respirations, skin warm/dry/pink. [facility] at bedside to speak w/ pt. 10:03 Reassessment: Patient appears in no apparent distress at this time. Patient and/or ph family updated on plan of care and expected duration. Pain level reassessed. Patient is alert, oriented x 3, equal unlabored respirations, skin warm/dry/pink. Pt up for d/c, called who stated that he would be here to pick her up in "a few minutes." Pt resting quietly in room, awaiting ride home. Psych: 02:30 Subjective: Patient's mood is appropriate Delusions are denied, Hallucinations are lp1 visual. Objective: Patient is cooperative, Speech is normal, Affect is appropriate. Interventions: Patient placed in hospital gown. Suicide Risk Assessment: Sad Person Scale: Sex of patient: Female: Score 0 points. Age of patient: Score 0 point if patient falls outside of specified age parameters. Depression: Score 0 point if signs of depression are not present. Previous Attempt: Score 0 point if patient has not previously attempted suicide. Substance Abuse: Score 0 point if patient does not abuse alcohol or drugs. Rational Thinking: Score 1 point if patient is lacking rational thinking. Social Support: Score 0 if social support is present/available. Organized Plan: Score 0 if patient did not have an organized plan in place. Relationship: Score 0 point if patient has a spouse or domestic partner. Chronic Sickness: Score 0 point if patient does not have a chronic illness, debilitating, or severe disorder. TOTAL POINTS: If total points are 0-2, proposed clinical action is to send home with follow-up. Safety Checks: Door is open. 02:30 Pt denies substance abuse. lp1 Vital Signs: 02:10 BP 108 / 65; Pulse 108; Resp 18; Temp 98.5(O); Pulse Ox 97% on R/A; Weight 66.68 kg fc (R); Height 5 ft. 5 in. (165.10 cm) (R); Pain 0/10; 03:30 BP 110 / 63; Pulse 70; Resp 16; Pulse Ox 99% on R/A; lp1 04:30 BP 127 / 73; Pulse 60; Resp 16; Pulse Ox 99% on R/A; lp1 05:30 BP 107 / 61; Pulse 82; Resp 16; Pulse Ox 96% on R/A; lp1 06:37 BP 114 / 72; Pulse 80; Resp 16; Pulse Ox 98% on R/A; lp1 07:28 BP 123 / 68; Pulse 72; Resp 17; Pulse Ox 97% on R/A; dh3 08:30 BP 118 / 78; Pulse 76; Resp 18; Pulse Ox 99% on R/A; ph 09:30 BP 122 / 72; Pulse 81; Resp 18; Temp 98.0; Pulse Ox 99% on R/A; ph 02:10 Body Mass Index 24.46 (66.68 kg, 165.10 cm) ED Course: 02:10 Arm band placed on Patient placed in an exam room, on a stretcher. fc 02:11 Patient arrived in ED. al2 02:29 Real Snell MD is Attending Physician. rn 02:34 Triage completed. fc 02:35 Patient has correct armband on for positive identification. Bed in low position. Call fc light in reach. family at bedside. 03:[address] via wheelchair. kw1 03:12 Courtney Conroy, RN is Primary Nurse. lp1 03:12 CT completed. Patient tolerated procedure well. Patient moved back from CT. kw1 03:15 CT Head Brain wo Cont In Process Unspecified. EDMS 03:15 Inserted saline lock: 20 gauge in right antecubital area, using aseptic technique. lp1 Blood collected. 03:30 Urine collected: clean catch specimen, iman colored. lp1 04:00 Lab(s) recollected, by me, sent to lab. lp1 06:18 called and spoke with Roxanne at the [facility] crisis line. She will call the eb screener non food receiving clerk and send her on her way here. 06:36 IV discontinued, Patient pulled out IV to R AC, Provider notified. lp1 07:23 Attending Physician role handed off by Real Snell MD arina 07:23 Bashir Cline MD is Attending Physician. arina 10:30 No provider procedures requiring assistance completed. ph Administered Medications: 03:30 Drug: NS 0.9% 1000 ml Route: IV; Rate: 1000 ml; Site: right antecubital; lp1 05:00 Follow up: IV Status: Completed infusion; IV Intake: 1000ml lp1 06:36 Drug: Potassium Chloride 40 mEq Route: PO; lp1 10:08 Follow up: Response: No adverse reaction ph 10:08 Not Given (Patient Refused): Potassium Chloride 20 mEq IV at per protocol once; ph administer over 1-2 hours 10:08 Not Given (Patient Refused): Potassium Effervescent Tablet 50 mEq PO once; dissolve in ph 4 ounces of water or juice 10:08 Not Given (Patient Refused): NS 0.9% with KCl 20 mEq/L 1000 ml IV at 125 ml/hr ph continuous Intake: 05:00 IV: 1000ml; Total: 1000ml. lp1 Outcome: 07:30 ER care complete, transfer ordered by . arina 09:01 Discharge ordered by . arina 11:20 Patient left the ED. ph 11:20 Discharged to home ambulatory, with family. ph 11:20 Condition: stable 11:20 Discharge instructions given to patient, family, Instructed on discharge instructions, follow up and referral plans. Demonstrated understanding of instructions, follow-up care. Signatures: Dispatcher [employer] Bashir Allen MD MD cha Chretien, Felicia, RN RN Real Snell MD MD rn Pena, Laura, RN RN 1 Clair Hanson RN RN Janelle Doll 3 Xochitl De Jesus1 Maggie Hawkins Elizabeth eb
--- NOTE | 2018-01-27 08:07 | RAD REPORT ---
EXAM DESCRIPTION: CT - Head Brain Wo Cont - 01/27/2018 4:49 am CLINICAL HISTORY: hallucinations Transient alteration of awareness COMPARISON: No comparisons TECHNIQUE: All CT scans are performed using dose optimization technique as appropriate and may inclu de automated exposure control or mA/KV adjustment according to patient size. FINDINGS: No intracranial hemorrhage, hydrocephalus or extra-axial fluid collection.No areas of brai n edema or evidence of midline shift. The paranasal sinuses and mastoids are clear. The calvarium is intact. IMPRESSION: No acute intracranial abnormality.
--- NOTE | 2018-01-27 15:42 | EKG ---
Test Date: 2018-01-27 Test Time: 03:29:29 [place] Turner: GRIS MEASUREMENT RESULTS: Intervals: Rate: 71 DC: 118 QRSD: 82 QT: 396 QTc: 430 [place]: P: 39 DC: 118 QRS: 40 T: 21 INTERPRETIVE STATEMENTS: Normal sinus rhythm with sinus arrhythmia Normal ECG Compared to ECG 01/21/2018 15:00:04 No significant changes Electronically Signed On 01-27-18 15:40:35 CDT by Yosvany Gee
== END 2018-01-27 11:20 | disposition home or self-care (01) ==
LOC: ER 02:05
DX: F43.21 Adjustment disorder with depressed mood (principal); F41.9 Anxiety disorder, unspecified; E87.6 Hypokalemia; I10 Essential (primary) hypertension; F17.210 Nicotine dependence, cigarettes, uncomplicated; Z88.8 Allergy status to other drugs, medicaments and biological substances
CPT/HCPCS: 36415; 70450; 80048; 80076; 80307; 80320; 80329; 81003; 81025; 85025; 85610; 85730; 93005; 96360; 99285; J7030

== ENCOUNTER 2018-01-27 15:12 | Emergency (ER) | payer BC ==
--- NOTE | 2018-01-27 15:38 | EKG ---
Test Date: 2018-01-27 Test Time: 15:31:04 Editorial Project Manager: NORA MEASUREMENT RESULTS: Intervals: Rate: 88 ID: [id number] QRSD: 76 QT: 378 QTc: 457 [place]: P: 34 ID: [id number] QRS: 30 T: 23 INTERPRETIVE STATEMENTS: Normal sinus rhythm with sinus arrhythmia Normal ECG Compared to ECG 01/27/2018 03:29:29 No significant changes Electronically Signed On 01-27-18 15:38:06 CDT by Yosvany Gee
[2018-01-27 16:10] LABS: Absolute Lymphocytes (CBC) 1.8 K/uL (0.7-4.9); Absolute Monocytes 0.9 K/uL (0.1-1.3); Basophils % 0.3 % (0-1.3); Eosinophils % 0.2 % (0-4.4); Hematocrit 42.7 % (36.0-45.0); Lymphocytes % 13.2 % (15.3-44.8); MCH 32.2 pg (27.0-35.0); MCV 95.2 fL (80-100); MPV 9.3 fL (7.6-11.3); Monocytes % 6.4 % (3.3-12.3); RBC Red Blood Cell Count 4.49 M/uL (3.86-4.86)
[2018-01-27 16:13] LABS: Protime INR 1.08
[2018-01-27] MEDS ORDERED: NA CHLORIDE 0.9% 1,000 ML ONE (16:26)
[2018-01-27 16:30] LABS: ALT/SGPT 34 U/L (12-78); AST/SGOT 15 U/L (15-37); Albumin 3.7 g/dL (3.4-5.0); Alkaline Phosphatase 80 U/L (45-117); BUN Blood Urea Nitrogen 5 mg/dL (7-18); Bicarbonate 28 mmol/L (21-32); Bilirubin Direct 0.1 mg/dL (0-0.2); Bilirubin Total 0.3 mg/dL (0.2-1.0); Glucose Level 95 mg/dL (74-106); Potassium 3.2 mmol/L (3.5-5.1); Protein, Total 6.3 g/dL (6.4-8.2); Sodium Level 144 mmol/L (136-145)
[2018-01-27 16:33] LABS: Urine Blood TRACE (NEG); Urine Glucose NEGATIVE (NEG); Urine Protein 2+ (NEG); Urine Specific Gravity >1.030 (1.005-1.030); Urine pH 5.5 (5.0-7.0)
[2018-01-27 16:33] LABS: Barbiturates NEGATIVE (NEGATIVE); Benzodiazepines NEGATIVE (NEGATIVE); Cocaine NEGATIVE (NEGATIVE); METHAMPHETAM NEGATIVE (NEGATIVE); Methadone NEGATIVE (NEGATIVE); Opiates NEGATIVE (NEGATIVE); Phencyclidine NEGATIVE (NEGATIVE); THC Cannibis NEGATIVE (NEGATIVE)
[2018-01-27 16:38] LABS: Alcohol Serum/Plasma 7 mg/dL (0-3)
[2018-01-27] MEDS ORDERED: POTASSIUM 25 MEQ EFFERV TAB ONE (17:47)
--- NOTE | 2018-01-27 18:22 | ER ---
Nurse's Notes [facility] Name: Emily Barber Age: 47 yrs Sex: Female : 1970 Arrival Date: 01/27/2018 Time: 15:17 Bed 14 Private MD: Diagnosis: Suicidal ideations Presentation: 01/27 15:27 Presenting complaint: police report that patient was at her house saying that she ss wanted to find a gun and kill herself after had been making phone calls trying to find placement in a psych facility. Transition of care: patient was not received from another setting of care. Onset of symptoms is unknown. Risk Assessment: Do you want to hurt yourself or someone else? Patient reports no desire to harm self or others. Initial Sepsis Screen: Does the patient meet any 2 criteria? No. Patient's initial sepsis screen is negative. Does the patient have a suspected source of infection? No. Patient's initial sepsis screen is negative. Care prior to arrival: None. 15:27 Method Of Arrival: Law Enforcement: Frieda TORRES 15:27 Acuity: KAMILLA 2 ss ATTORNEY GENERAL: 15:30 LMP N/A - Hysterectomy ss Historical: - Allergies: 15:30 Pyridium; ss - Home Meds: 15:20 None [Active]; rb1 - PMHx: 15:30 Anxiety; Back pain; broken back; Depression; Hypertension; Pneumonia; ss - PSHx: 15:30 ; Cholecystectomy; Hysterectomy; ss - Immunization history:: Adult Immunizations unknown. - Social history:: Smoking status: Patient uses tobacco products, denies chronic smoking, but will smoke occasionally. - Ebola Screening: : Patient denies exposure to infectious person Patient denies travel to an Ebola-affected area in the 21 days before illness onset. Screenin:20 Abuse screen: Denies threats or abuse. Nutritional screening: No deficits noted. rb1 Tuberculosis screening: No symptoms or risk factors identified. Fall Risk None identified. Assessment: 15:20 General: Appears in no apparent distress. comfortable, Behavior is calm, cooperative. rb1 Pain: Denies pain. Neuro: Level of Consciousness is awake, alert, obeys commands, Oriented to person, place, time, situation, pt. stated, "I hear demons talking to me.". Cardiovascular: Capillary refill < 3 seconds is brisk in bilateral fingers. Respiratory: Airway is patent Respiratory effort is even, unlabored, Respiratory pattern is regular, symmetrical. GI: No signs and/or symptoms were reported involving the gastrointestinal system. : No signs and/or symptoms were reported regarding the genitourinary system. Derm: Skin is pink, warm \\T\\ dry. 16:17 Reassessment: Patient appears in no apparent distress at this time. Patient and/or rb1 family updated on plan of care and expected duration. Pain level reassessed. Patient is alert, oriented x 3, equal unlabored respirations, skin warm/dry/pink. pt. is being cooperative. 17:15 Reassessment: Patient appears in no apparent distress at this time. No changes from rb1 previously documented assessment. 17:50 Reassessment: Did a nurse to nurse report with NANI Vera from [facility]. All rb1 questions asked and answered. 18:15 Reassessment: Patient appears in no apparent distress at this time. Patient and/or rb1 family updated on plan of care and expected duration. Pain level reassessed. Patient is alert, oriented x 3, equal unlabored respirations, skin warm/dry/pink. Patient denies pain at this time. 19:10 Reassessment: Patient appears in no apparent distress at this time. No changes from rb1 previously documented assessment. Psych: 15:20 Subjective: Patient's mood is irritable, Delusions are denied, Hallucinations are rb1 auditory, Hears demons talking to her. Having thoughts of suicide. Objective: Patient is irritable, Speech is normal, Affect is appropriate. Interventions: Removed personal items and placed in bag. Patient placed in hospital gown. Searched person for dangerous items. Urine collected and sent for urine drug test. Suicide Risk Assessment: Sad Person Scale: Sex of patient: Female: Score 0 points. Age of patient: Score 0 point if patient falls outside of specified age parameters. Depression: Score 1 point if signs of depression are present. Previous Attempt: Score 0 point if patient has not previously attempted suicide. Substance Abuse: Score 0 point if patient does not abuse alcohol or drugs. Rational Thinking: Score 1 point if patient is lacking rational thinking. Social Support: Score 0 if social support is present/available. Organized Plan: Score 0 if patient did not have an organized plan in place. Relationship: Score 0 point if patient has a spouse or domestic partner. Chronic Sickness: Score 1 point if patient has illness, chronic, debilitating, or severe. TOTAL POINTS: If total points are 3-4, proposed clinical action is close follow-up/consider hospitalization. Safety Checks: Personal items have been removed. Door is open. No visitors are present at this time. Pt denies substance abuse. 15:20 Commitment: Patient will be a voluntary commitment. rb1 Vital Signs: 15:30 BP 125 / 75; Pulse 97; Resp 15; Temp 98.0(TE); Pulse Ox 98% on R/A; Weight 66.68 kg; ss Height 5 ft. 5 in. (165.10 cm); Pain 0/10; 17:45 BP 123 / 74; Pulse 88; Resp 17; Temp 98.0(O); Pulse Ox 100% on R/A; rb1 18:50 BP 128 / 82; Pulse 84; Resp 19; Pulse Ox 99% on R/A; rb1 15:30 Body Mass Index 24.46 (66.68 kg, 165.10 cm) ED Course: 15:17 Patient arrived in ED. rb1 15:19 Grace Reyes FNP-C [facility]. snw 15:19 Bashir Cline MD is Attending Physician. snw 15:20 Safety Checks: Personal items have been removed. The door is open or patient has been rb1 placed in a hallway bed/chair. There are no family/friend visitors at this time Sitter present at this time. 15:20 Patient has correct armband on for positive identification. Placed in gown. Bed in low rb1 position. Side rails up X 1. 15:29 Triage completed. ss 15:30 Safety Checks: Personal items have been removed. The door is open or patient has been rb1 placed in a hallway bed/chair. There are no family/friend visitors at this time Sitter present at this time. 15:30 Arm band placed on right wrist. ss 15:36 EKG done, by solar fabrication technician. reviewed by Grace WALLACE. sm3 15:45 Safety Checks: Personal items have been removed. The door is open or patient has been rb1 placed in a hallway bed/chair. There are no family/friend visitors at this time Sitter present at this time. 16:00 Safety Checks: Personal items have been removed. The door is open or patient has been rb1 placed in a hallway bed/chair. There are no family/friend visitors at this time Sitter present at this time. 16:05 Audrey Campbell, RN is Primary Nurse. rb1 16:07 Initial lab(s) drawn, by me, sent to lab. Urine collected: clean catch specimen, iman dh3 colored. Inserted saline lock: 22 gauge in left antecubital area, using aseptic technique. Blood collected. 16:15 Safety Checks: Personal items have been removed. The door is open or patient has been rb1 placed in a hallway bed/chair. There are no family/friend visitors at this time Sitter present at this time. 16:30 Safety Checks: Personal items have been removed. The door is open or patient has been rb1 placed in a hallway bed/chair. There are no family/friend visitors at this time Sitter present at this time. 16:45 Safety Checks: Personal items have been removed. The door is open or patient has been rb1 placed in a hallway bed/chair. There are no family/friend visitors at this time Sitter present at this time. 17:00 Safety Checks: Personal items have been removed. The door is open or patient has been rb1 placed in a hallway bed/chair. There are no family/friend visitors at this time Sitter present at this time. 17:15 Safety Checks: Personal items have been removed. The door is open or patient has been rb1 placed in a hallway bed/chair. There are no family/friend visitors at this time Sitter present at this time. 17:30 Safety Checks: Personal items have been removed. The door is open or patient has been rb1 placed in a hallway bed/chair. There are no family/friend visitors at this time Sitter present at this time. 17:45 Safety Checks: Personal items have been removed. The door is open or patient has been rb1 placed in a hallway bed/chair. There are no family/friend visitors at this time Sitter present at this time. 18:00 Safety Checks: Personal items have been removed. The door is open or patient has been rb1 placed in a hallway bed/chair. There are no family/friend visitors at this time Sitter present at this time. 18:15 Safety Checks: Personal items have been removed. The door is open or patient has been rb1 placed in a hallway bed/chair. There are no family/friend visitors at this time Sitter present at this time. 18:30 Safety Checks: Personal items have been removed. The door is open or patient has been rb1 placed in a hallway bed/chair. There are no family/friend visitors at this time Sitter present at this time. 18:45 Safety Checks: Personal items have been removed. The door is open or patient has been rb1 placed in a hallway bed/chair. There are no family/friend visitors at this time Sitter present at this time. 19:00 Safety Checks: Personal items have been removed. The door is open or patient has been rb1 placed in a hallway bed/chair. There are no family/friend visitors at this time Sitter present at this time. 19:10 No provider procedures requiring assistance completed. IV discontinued, intact, rb1 bleeding controlled, No redness/swelling at site. Pressure dressing applied. Administered Medications: 16:20 Drug: NS 0.9% 1000 ml Route: IV; Rate: 125 ml/hr; Site: left antecubital; rb1 17:51 Drug: Potassium Effervescent Tablet 50 mEq Route: PO; rb1 18:15 Follow up: Response: No adverse reaction rb1 Outcome: 18:22 ER care complete, transfer ordered by . snw 19:10 Patient left the ED. rb1 19:10 Transferred by ground EMS Transfer form completed. Note: [place] [id number] 19:10 Condition: stable 19:10 Instructed on the need for transfer. Signatures: Grace Reyes, SEISMIC INTERPRETER-C SEISMIC INTERPRETER-Csnw Portia Merritt RN RN Audrey Campbell RN RN [facility] Janelle Doll [facility] Sujata Thomson 3 Corrections: (The following items were deleted from the chart) 15:33 15:27 Presenting complaint: police report that patient was at her house saying that she ss wanted to find a gun and kill herself. Pt was agitated at home and police had a hard time getting her in the vehicle. Pt is now calm, cooperative and denies HI, SI ideations. 16:11 15:15 Safety Checks: Personal items have been removed. The door is open or patient has rb1 been placed in a hallway bed/chair. There are no family/friend visitors at this time Sitter present at this time. rb1 19:15 19:14 Patient left the ED. rb1 rb1
--- NOTE | 2018-01-27 18:23 | EDPHYS ---
Physician Documentation [facility] Name: Emily Barber Age: 47 yrs Sex: Female : 1970 Arrival Date: 01/27/2018 Time: 15:17 Bed 14 Private MD: ED Physician Bashir Cline HPI: 01/27 15:45 This 47 yrs old Female presents to ER via Law Enforcement with complaints of snw Suicidal Ideation. 15:45 The patient presents to the emergency department with paranoia, suicide ideation, and snw the patient has a plan, to shoot self. Onset: The symptoms/episode began/occurred "lately". Past psychiatric history: it is unknown whether or not the patient has had a prior suicide gesture, the patient does not have a previous inpatient psychiatric history, the patient's last psychiatric treatment was none. Associated signs and symptoms: Pertinent positives; anxiety, depression, hallucinations, paranoia, suicide ideation. Severity of symptoms: At their worst the symptoms were severe in the emergency department the symptoms are unchanged. It is unknown whether or not the patient has had similar symptoms in the past. pt was here for similar symptoms today. Penitentiary warrant has now been obtained. Pt's Spouse's name is Bashir Barber at [phone]. 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 - Social history:: Smoking status: Patient uses tobacco products, denies chronic smoking, but will smoke occasionally. - Ebola Screening: : Patient denies exposure to infectious person Patient denies travel to an Ebola-affected area in the 21 days before illness onset. ROS: 15:44 Eyes: Negative for injury, pain, redness, and discharge, ENT: Negative for injury, snw pain, and discharge, Neck: Negative for injury, pain, and swelling, Cardiovascular: Negative for chest pain, palpitations, and edema, Respiratory: Negative for shortness of breath, cough, wheezing, and pleuritic chest pain, Abdomen/GI: Negative for abdominal pain, nausea, vomiting, diarrhea, and constipation, Back: Negative for injury and pain, : Negative for injury, bleeding, discharge, and swelling, MS/Extremity: Negative for injury and deformity, Skin: Negative for injury, rash, and discoloration, Neuro: Negative for headache, weakness, numbness, tingling, and seizure. 15:44 Constitutional: Positive for poor PO intake, feeling like she is having "panic attacks". 15:44 Psych: Positive for anxiety, visual hallucinations, insomnia, suicidal ideation. Exam: 15:40 Head/Face: Normocephalic, atraumatic. Eyes: Pupils equal round and reactive to light, snw extra-ocular motions intact. Lids and lashes normal. Conjunctiva and sclera are non-icteric and not injected. Cornea within normal limits. Periorbital areas with no swelling, redness, or edema. ENT: Nares patent. No nasal discharge, no septal abnormalities noted. Tympanic membranes are normal and external auditory canals are clear. Oropharynx with no redness, swelling, or masses, exudates, or evidence of obstruction, uvula midline. Mucous membranes moist. Neck: Trachea midline, no thyromegaly or masses palpated, and no cervical lymphadenopathy. Supple, full range of motion without nuchal rigidity, or vertebral point tenderness. No Meningismus. Chest/axilla: Normal chest wall appearance and motion. Nontender with no deformity. No lesions are appreciated. Cardiovascular: Regular rate and rhythm with a normal S1 and S2. No gallops, murmurs, or rubs. Normal PMI, no JVD. No pulse deficits. Respiratory: Lungs have equal breath sounds bilaterally, clear to auscultation and percussion. No rales, rhonchi or wheezes noted. No increased work of breathing, no retractions or nasal flaring. Abdomen/GI: Soft, non-tender, with normal bowel sounds. No distension or tympany. No guarding or rebound. No evidence of tenderness throughout. Back: No spinal tenderness. No costovertebral tenderness. Full range of motion. Skin: Warm, dry with normal turgor. Normal color with no rashes, no lesions, and no evidence of cellulitis. MS/ Extremity: Pulses equal, no cyanosis. Neurovascular intact. Full, normal range of motion. Neuro: Awake and alert, GCS 15, oriented to person, place, time, and situation. Cranial nerves II-XII grossly intact. Motor strength 5/5 in all extremities. Sensory grossly intact. Cerebellar exam normal. Normal gait. 15:40 Constitutional: The patient appears awake, agitated, anxious. 15:40 Psych: Behavior/mood is anxious, Affect is flat, Oriented to person, place, Not oriented to time, states she wanted a gun because she thought Sukhwinder was coming back. States she saw Demons but Blairs too. Pt states she is embarressed about her behavior but didn't know what else to do. Pt asked her ("a good man" that she has been to for more than 20 years). Pt denies psych hx or previous tx at any facility, Judgement / Insight is impaired. Recent memory is denies remembering the past few days, "I've lost track of time". Delusions/hallucinations are present and described as buddhism. Vital Signs: 15:30 BP 125 / 75; Pulse 97; Resp 15; Temp 98.0(TE); Pulse Ox 98% on R/A; Weight 66.68 kg; ss Height 5 ft. 5 in. (165.10 cm); Pain 0/10; 17:45 BP 123 / 74; Pulse 88; Resp 17; Temp 98.0(O); Pulse Ox 100% on R/A; rb1 18:50 BP 128 / 82; Pulse 84; Resp 19; Pulse Ox 99% on R/A; rb1 15:30 Body Mass Index 24.46 (66.68 kg, 165.10 cm) ss MDM: 15:19 Patient medically screened. arina 18:04 Differential diagnosis: acute psychotic break, depression. Data reviewed: vital signs, snw nurses notes. Data interpreted: Pulse oximetry: on room air is 100 %. Interpretation: normal. Counseling: I had a detailed discussion with the patient and/or guardian regarding: the historical points, exam findings, and any diagnostic results supporting the discharge/admit diagnosis, lab results, the need to transfer to another facility, for higher level of care, [facility] does not immediately have the required specialist. Special discussion:. ED course: pt arrived here for evaluation earlier today but denied suicidal ideation and refused tx. Pt went home and threatened her life with a gun and asked her to shoot her and the Mental health deputy returned pt to ED with a long term warrant/order. 18:21 Physician consultation: Dr Beckman was called at 18:21, was contacted at 18:21, regarding snw regarding transfer, to a psychiatric hospital. patient's condition. 01/27 15:20 Order name: Acetaminophen; Complete Time: 17:14 w 01/27 15:20 Order name: Basic Metabolic Panel; Complete Time: 17:14 [facility] 01/27 15:20 Order name: CBC with Diff; Complete Time: 16:20 w 01/27 15:20 Order name: ETOH Level; Complete Time: 17:14 w 01/27 15:20 Order name: Hepatic Function; Complete Time: 17:14 w 01/27 15:20 Order name: PT-INR; Complete Time: 16:20 [facility] 01/27 15:20 Order name: Ptt, Activated; Complete Time: 16:20 [facility] 01/27 15:20 Order name: Salicylate; Complete Time: 17:14 [facility] 01/27 15:20 Order name: Urine Drug Screen; Complete Time: 17:14 w 01/27 15:20 Order name: EKG; Complete Time: 15:20 01/27 16:10 Order name: Urine Dipstick--Ancillary (enter results); Complete Time: 17:14 01/27 16:10 Order name: Urine --Ancillary (enter results); Complete Time: 17:14 01/27 15:20 Order name: EKG - Nurse/Tech; Complete Time: 17:51 01/27 15:20 Order name: IV Saline Lock; Complete Time: 16:08 01/27 15:20 Order name: Labs collected and sent; Complete Time: 16:08 01/27 15:20 Order name: Urine Dipstick-Ancillary (obtain specimen); Complete Time: 16:09 snw Administered Medications: 16:20 Drug: NS 0.9% 1000 ml Route: IV; Rate: 125 ml/hr; Site: left antecubital; rb1 17:51 Drug: Potassium Effervescent Tablet 50 mEq Route: PO; rb1 18:15 Follow up: Response: No adverse reaction rb1 Disposition: 01/28 06:54 Co-signature as Attending Physician, Bashir Cline MD I agree with the assessment and arina plan of care. Disposition: 01/27/18 18:22 Transfer ordered to Psych Facility. Diagnosis is Suicidal ideations. - Reason for transfer: Higher level of care. - Accepting physician is Dr. Beckman. - Condition is Stable. - Problem is new. - Symptoms have worsened. Signatures: Dispatcher [employer] EDBashir Arreguin MD MD cha Therrien, Shelly, CARPENTER MOLD-C CARPENTER MOLD-Csnw Portia Merritt, NANI RN ss Audrey Campbell, RN RN rb1 Corrections: (The following items were deleted from the chart) 01/27 19:14 18:22 01/27/2018 18:22 Transfer ordered to Psych Facility. Diagnosis is Suicidal rb1 ideations. Reason for transfer: Higher level of care. Accepting physician is Dr. Beckman. Condition is Stable. Problem is new. Symptoms have worsened. snw
== END 2018-01-27 19:14 ==
LOC: ER 15:12
DX: R45.851 Suicidal ideations (principal); F32.9 Major depressive disorder, single episode, unspecified; I10 Essential (primary) hypertension; Z72.0 Tobacco use; Z88.8 Allergy status to other drugs, medicaments and biological substances
CPT/HCPCS: 36415; 80048; 80076; 80307; 80320; 80329; 81003; 81025; 85025; 85610; 85730; 93005; 99285; J7030

== ENCOUNTER 2024-10-04 23:55 | Emergency (ER) | payer BC, OTHER, SELFPAY ==
--- OUTSIDE RECORDS SUMMARY | 2024-10-04 23:59 | XMS REPORT | Continuity of Care Document ---
Author Name Unknown Address [address] [facility] [address] [place] [address] [facility] Address [address] [facility] [address] [place] [address] Care Team Providers Care Electorate Officer Name Role Phone Pcp, Pcp Primary Care Physician Shady Rosales MD, Coco Hansen Attending Clinician Payers Payer Name Policy Type Policy Number Effective Date Expirati on Date Source Allergies, Adverse Reactions, Alerts Allergy Name Allergy Type Status Severity Reaction(s) Onset Date Inactive Date Treating Clinician Comments Source none (Not Checked) Propens[facility] ty to adverse reaction to drug Active 03-31 00:00: 00 Daniel Mustafa Social History Social Habit Start Date Stop Date Quantity Comments Source Gender identity 2023-10-25 14:04:08 Identifies as female gender (finding) [facility] ASSERTION Possible M [facility] Sexual orientation M [facility] Smoking Status Start Date Stop Date Source Tobacco smoking consumption unknown [facility] Medications Ordered Medication Name Filled Medication Name Start Date Stop Date Current Medication? Ordering Clinician Indication Dosage Frequency Signature (SIG) Comments Components Source hydrochloro thiazide 25 mg tablet 2023-08 00:00: 00 Yes 1mg Daniel Mustafa Macrobid 100 mg capsule 2023-08- 00:00: 00 Yes 1mg Daniel Mustafa allopurinol 100 mg tablet 2023-08 00:00: 00 Yes 1mg Daniel Mustafa Macrobid 100 mg capsule 2023-08 00:00: 00 Yes 1mg Daniel Mustafa sertraline 100 mg tablet 2023-08-14 00:00: 00 Yes 1mg Daniel Mustafa bupropion HCl SR 100 mg tablet,12 hr sustained-r elease 2023-08 00:00: 00 Yes 1mg Daniel Mustafa hydroxyzine HCl 25 mg tablet 2023-08 00:00: 00 Yes 1mg Daniel Mustafa trazodone 50 mg tablet 2023-08 00:00: 00 Yes 15mg Daniel Mustafa sertraline 100 mg tablet 2023-08 00:00: 00 Yes 1mg Daniel Mustafa bupropion HCl SR 100 mg tablet,12 hr sustained-r elease 2023-08 00:00: 00 Yes 1mg Daniel Mustafa hydroxyzine HCl 25 mg tablet 2023-08 00:00: 00 Yes 1mg Daniel Mustafa trazodone 50 mg tablet 2023-08 00:00: 00 Yes 15mg Daniel Mustafa sertraline 100 mg tablet 2023-08 00:00: 00 Yes 1mg Daniel Mustafa bupropion HCl SR 100 mg tablet,12 hr sustained-r elease 2023-08 00:00: 00 Yes 1mg Daniel Mustafa hydroxyzine HCl 25 mg tablet 2023-08 00:00: 00 Yes 1mg Daniel Mustafa trazodone 50 mg tablet 2023-08 00:00: 00 Yes 15mg Daniel Mustafa sertraline 100 mg tablet 2023-08 0 00:00: 00 Yes 1mg Daniel Mustafa bupropion HCl SR 100 mg tablet,12 hr sustained-r elease 2023-08 0- 00:00: 00 Yes 1mg Daniel Mustafa hydroxyzine HCl 25 mg tablet 2023-08 0- 00:00: 00 Yes 1mg Daniel Mustafa trazodone 50 mg tablet 2023-08 0- 00:00: 00 Yes 15mg Daniel Mustafa sertraline 100 mg tablet - 00:00: 00 Yes 1mg Daniel Mustafa hydroxyzine HCl 25 mg tablet - 00:00: 00 Yes 1mg Daniel Mustafa trazodone 50 mg tablet - 00:00: 00 Yes 15mg Daniel Mustafa atorvastati n 10 mg tablet 03-31 00:00: 00 Yes 1mg Daniel Mustafa pantoprazol e 40 mg tablet,shanae yed release 03-31 00:00: 00 Yes 1mg Daniel Mustafa carvedilol 12.5 mg tablet 03-31 00:00: 00 Yes 1mg Daniel Mustafa hydroxyzine HCl 25 mg tablet 0 - 00:00: 00 Yes 1mg Daniel Mustafa trazodone 50 mg tablet 03-20 00:00: 00 Yes 15mg Daniel Mustafa sertraline 100 mg tablet 03-20 00:00: 00 Yes 1mg Daniel Mustafa sertraline 100 mg tablet - 00:00: 00 Yes 1mg Daniel Mustafa hydroxyzine HCl 25 mg tablet 02-20 00:00: 00 Yes 1mg Daniel Mustafa trazodone 50 mg tablet - 00:00: 00 Yes 15mg Daniel Mustafa sertraline 100 mg tablet 01-29 00:00: 00 Yes 1mg Daniel Mustafa hydroxyzine HCl 25 mg tablet 01-29 00:00: 00 Yes 1mg Daniel Mustafa trazodone 50 mg tablet 01-29 00:00: 00 Yes 15mg Daniel Mustafa sertraline 100 mg tablet -24 00:00: 00 Yes 1mg Daniel Mustafa trazodone 50 mg tablet 24 00:00: 00 Yes 15mg Daniel Mustafa TAKE 1 TABLET DAILY. 11-23 00:00: 00 Yes 100 Daniel Mustafa TAKE 1 AND 1/2 TABLETS AT BEDTIME. 11-23 00:00: 00 Yes 50 Daniel Mustafa TAKE 1 AND 1/2 TABLETS AT BEDTIME. 10-26 00:00: 00 12-08 00:00 :00 No 50 Daniel Mustafa TAKE 1 TABLET DAILY. 10-26 00:00: 00 12-08 00:00 :00 No 100 Daniel Mustafa SERTRALINE 100MG 3- 00:00: 00 Yes Daniel Mustafa TAKE 1 TABLET DAILY. 10-05 00:00: 00 12-08 00:00 :00 No 100 Daniel Mustafa TAKE 1 AND 1/2 TABLETS AT BEDTIME. 10-05 00:00: 00 12-08 00:00 :00 No 50 Daniel Mustafa TAKE 1 TABLET TWICE DAILY. 10-01 00:00: 00 Yes 125 Daniel Mustafa APPLY SPARINGLY AND MASSAGE IN TWICE DAILY. 10-01 00:00: 00 Yes 1 Daniel Mustafa PANTOPRAZOL E 40MG DR 09-27 00:00: 00 Yes Daniel Mustafa OTEZLA 30MG 09-09 00:00: 00 Yes Daniel Mustafa TAKE 1 TABLET AT BEDTIME NEEDED. 09-08 00:00: 00 12-08 00:00 :00 No 50 Daniel Mustafa TAKE 1 AND 1/2 TABLETS DAILY. 09-08 00:00: 00 12-08 00:00 :00 No 50 Daniel Mustafa CARVEDILOL 6.25MG 08-27 00:00: 00 Yes Daniel Mustafa ATORVASTATI N 10MG 08-17 00:00: 00 Yes Daniel Mustafa TAKE 1 TABLET AT BEDTIME NEEDED. 08-11 00:00: 00 12-08 00:00 :00 No 50 Daniel Mustafa TAKE 1 AND 1/2 TABLETS DAILY. 08-11 00:00: 00 12-08 00:00 :00 No 50 Daniel Mustafa SERTRALINE 50MG 2022-0818 00:00: 00 Yes [id number] Daniel Mustafa ATORVASTATI N 10MG 2022-08 00:00: 00 Yes [id number] Daniel Mustafa TAKE 1 AND 1/2 TABLETS DAILY. 2022-08 00:00: 00 12-08 00:00 :00 No 50 Daniel Mustafa TAKE 1 TABLET AT BEDTIME NEEDED. 2022-08 00:00: 00 12-08 00:00 :00 No 50 Daniel Mustafa CARVEDILOL 6.25MG 2022-08 00:00: 00 Yes Daniel Mustafa TAKE 1 TABLET BY MOUTH DAILY 2022-08 00:00: 00 Yes Daniel Mustafa TAKE 1 TABLET AT BEDTIME NEEDED. 2022-08 00:00: 00 12-08 00:00 :00 No 50 Daniel Mustafa TAKE 1 TABLET DAILY. 2022-08 00:00: 00 12-08 00:00 :00 No 50 Daniel Mustafa TAKE 1 TABLET BY MOUTH TWICE DAILY FOR 7 DAYS 2022-08 00:00: 00 Yes Daniel Mustafa TAKE 1 TABLET DAILY. 2022-08 00:00: 00 Yes 10 Daniel Mustafa sertraline (Zoloft) 50 MG tablet sertraline (Zoloft) 50 MG tablet 2022-08 00:00: 00 Yes 50mg 50 mg = 1 tab, PO, Daily, 0 Refill(s) Memoria kaleigh Reagan traZODone (Desyrel) 50 MG tablet traZODone (Desyrel) 50 MG tablet 2022-08 00:00: 00 Yes 50mg 50 mg = 1 tab, PO, 0 Refill(s) Memalma rosa Reagan carvedilol (Coreg) 6.25 MG tablet carvedilol (Coreg) 6.25 MG tablet 2022-08 00:00: 00 Yes 6.25mg 6.25 mg = 1 tab, PO, BID, 0 Refill(s) Memalma rosa Reagan pantoprazol e (ProtoNix) 40 MG EC tablet pantoprazol e (ProtoNix) 40 MG EC tablet 2022-08 00:00: 00 Yes 40mg 40 mg = 1 tab, PO, Daily, 0 Refill(s) Memalma rosa Reagan loratadine (Claritin) 10 MG tablet loratadine (Claritin) 10 MG tablet 2022-08 00:00: 00 Yes 10mg 10 mg = 1 tab, PO, Daily, 0 Refill(s) Memalma rosa Reagan TAKE 1/2 TABLET AT BEDTIME. 2022-08 00:00: 00 12-08 00:00 :00 No 50 Daniel Mustafa TAKE 1 TABLET DAILY. 2022-08 00:00: 00 Yes 40 Daniel Mustafa TAKE 1 TABLET TWICE DAILY WITH MEALS 2022-08 00:00: 00 Yes 625 Daniel Mustafa TAKE 1 TABLET EVERY MORNING. 2022-08 00:00: 00 Yes 10 Daniel Mustafa SERTRALINE 50MG 2022-08 00:00: 00 Yes Daniel Mustafa TAKE 1 TABLET DAILY. 2022-08 00:00: 00 12-08 00:00 :00 No 50 Daniel Mustafa APPLY SPARINGLY AND MASSAGE IN TWICE DAILY. 2022-08 00:00: 00 12-08 00:00 :00 No 1 Daniel Mustafa Vital Signs Vital Name Observation Time Observation Value Comments S ource BP Systolic 2024-07-07 13:27:00 132 mm[Hg] Step hen F Ramsey BP Diastolic 2024-07-07 13:27:00 82 mm[Hg] Jose phen Harpal Mustafa Weight Measured 2024-07-07 13:27:00 157.00 pounds Daniel Mustafa Height Measured 2024-07-07 13:27:00 64.00 inches Daniel Harpal Mustafa Body Temperature 2024-07-07 13:27:00 98.10 degrees Daniel Mustafa Heart Rate 2024-07-07 13:27:00 97.00 /min Niesha en F Ramsey Respiratory Rate 2024-07-07 13:27:00 16.00 /min Daniel Harpal Mustafa BP Systolic 2024-06-21 07:51:00 118 mm[Hg] Step hen F Ramsey BP Diastolic 2024-06-21 07:51:00 70 mm[Hg] Jose phen F Ramsey Weight Measured 2024-06-21 07:51:00 141.00 pounds Daniel Harpal Mustafa Height Measured 2024-06-21 07:51:00 64.00 inches Daneil Harpal Mustafa Body Temperature 2024-06-21 07:51:00 98.00 degrees Daniel Harpal Mustafa Heart Rate 2024-06-21 07:51:00 77.00 /min Niesha en F Ramsey Respiratory Rate 2024-06-21 07:51:00 20.00 /min Daniel Harpal Mustafa BP Systolic 2024-03-31 15:57:00 116 mm[Hg] Step hen F Ramsey BP Diastolic 2024-03-31 15:57:00 72 mm[Hg] Jose phen F Ramsey Weight Measured 2024-03-31 15:57:00 156.00 pounds Daniel F Ramsey Height Measured 2024-03-31 15:57:00 64.00 inches Daniel F Ramsey Body Temperature 2024-03-31 15:57:00 97.90 degrees Daniel F Armsey Heart Rate 2024-03-31 15:57:00 94.00 /min Niesha en F Ramsey Respiratory Rate 2024-03-31 15:57:00 18.00 /min Daniel F Ramsey BP Systolic 2023-10-27 11:39:00 143 mm[Hg] Step hen F Ramsey BP Diastolic 2023-10-27 11:39:00 82 mm[Hg] Jose phen F Ramsey Weight Measured 2023-10-27 11:39:00 166.40 pounds Daniel F Ramsey Height Measured 2023-10-27 11:39:00 64.00 inches Daniel F Ramsey Body Temperature 2023-10-27 11:39:00 Danile F Ramsey Heart Rate 2023-10-27 11:39:00 68.00 /min Niesha en F Ramsey Respiratory Rate 2023-10-27 11:39:00 18.00 /min Daniel F Ramsey BP Systolic 2023-10-01 09:47:00 140 mm[Hg] Step hen F Ramsey BP Diastolic 2023-10-01 09:47:00 100 mm[Hg] Jose phen F Ramsey Weight Measured 2023-10-01 09:47:00 167.00 pounds Daniel F Ramsey Height Measured 2023-10-01 09:47:00 64.00 inches Daniel F Ramsey Body Temperature 2023-10-01 09:47:00 97.30 degrees Daniel F Ramsey Heart Rate 2023-10-01 09:47:00 105.00 /min Step hen F Ramsey Respiratory Rate 2023-10-01 09:47:00 18.00 /min Daniel F Ramsey BP Systolic 2023-08-11 09:48:00 131 mm[Hg] Step hen F Ramsey BP Diastolic 2023-08-11 09:48:00 81 mm[Hg] Jose phen F Ramsey Weight Measured 2023-08-11 09:48:00 174.60 pounds Daniel F Ramsey Height Measured 2023-08-11 09:48:00 64.00 inches Daniel F Ramsey Body Temperature 2023-08-11 09:48:00 97.70 degrees Daniel F Ramsey Heart Rate 2023-08-11 09:48:00 82.00 /min Niesha en F Ramsey Respiratory Rate 2023-08-11 09:48:00 18.00 /min Daniel F Ramsey BP Systolic 2023-07-07 08:43:00 125 mm[Hg] Step hen F Ramsey BP Diastolic 2023-07-07 08:43:00 88 mm[Hg] Jose phen F Ramsey Weight Measured 2023-07-07 08:43:00 174.60 pounds Daniel F Ramsey Height Measured 2023-07-07 08:43:00 64.00 inches Daniel F Ramsey Body Temperature 2023-07-07 08:43:00 98.10 degrees Daniel F Ramsey Heart Rate 2023-07-07 08:43:00 80.00 /min Niesha en F Ramsey Respiratory Rate 2023-07-07 08:43:00 18.00 /min Daniel F Ramsey BP Systolic 2023-06-23 09:38:00 144 mm[Hg] Step hen F Ramsey BP Diastolic 2023-06-23 09:38:00 85 mm[Hg] Jose phen F Ramsey Weight Measured 2023-06-23 09:38:00 177.40 pounds Daniel F Ramsey Height Measured 2023-06-23 09:38:00 64.00 inches Daniel F Ramsey Body Temperature 2023-06-23 09:38:00 98.30 degrees Daniel F Ramsey Heart Rate 2023-06-23 09:38:00 100.00 /min Step hen F Ramsey Respiratory Rate 2023-06-23 09:38:00 18.00 /min Daniel F Ramsey BP Systolic 2023-06-16 10:47:00 140 mm[Hg] Step hen F Ramsey BP Diastolic 2023-06-16 10:47:00 72 mm[Hg] Jose phen F Ramsey Weight Measured 2023-06-16 10:47:00 180.00 pounds Daniel F Ramsey Height Measured 2023-06-16 10:47:00 64.00 inches Daniel F Ramsey Body Temperature 2023-06-16 10:47:00 97.10 degrees Daniel F Ramsey Heart Rate 2023-06-16 10:47:00 85.00 /min Niesha en F Ramsey Respiratory Rate 2023-06-16 10:47:00 18.00 /min Daniel F Ramsey BP Systolic 2023-06-10 08:23:00 133 mm[Hg] Step hen F Ramsey BP Diastolic 2023-06-10 08:23:00 86 mm[Hg] Jose phen F Ramsey Weight Measured 2023-06-10 08:23:00 180.20 pounds Daniel F Ramsey Height Measured 2023-06-10 08:23:00 64.00 inches Daniel F Ramsey Body Temperature 2023-06-10 08:23:00 98.30 degrees Daniel F Ramsey Heart Rate 2023-06-10 08:23:00 102.00 /min Step hen F Ramsey Respiratory Rate 2023-06-10 08:23:00 18.00 /min Daniel F Ramsey BP Systolic 2023-06-02 11:25:00 170 mm[Hg] Step hen F Ramsey BP Diastolic 2023-06-02 11:25:00 120 mm[Hg] Jose phen F Ramsey Weight Measured 2023-06-02 11:25:00 185.00 pounds Daniel F Ramsey Height Measured 2023-06-02 11:25:00 64.00 inches Daniel F Ramsey Body Temperature 2023-06-02 11:25:00 98.40 degrees Daniel F Ramsey Heart Rate 2023-06-02 11:25:00 137.00 /min Step hen F Ramsey Respiratory Rate 2023-06-02 11:25:00 18.00 /min Daniel F Ramsey Encounters Start Date/Time End Date/Time Encounter Type Admission Type Attending [facility] Care Department Encounter ID Source 2024-09-30 00:00:00 2024-09-30 16:00:53 Telephone Coco Lynn [id number] Sweta Cabrera [facility] 2024-09-28 00:00:00 2024-09-30 09:40:52 Telephone Coco Lynn [id number] Sweta Reagan 2024-07-07 13:26:54 2024-07-07 13:26:54 Outpatient SFA SFA [id number] Daniel Rowan Ramsey 2024-07-07 00:00:00 2024-07-07 00:00:00 Outpatient Visit SFA [id number] Daniel Rowan Ramsey 2024-06-21 07:51:02 2024-06-21 07:51:02 Outpatient SFA SFA [id number] Daniel Rowan Ramsey 2024-06-21 00:00:00 2024-06-21 00:00:00 Outpatient Visit SFA [id number] Daniel Rowan Ramsey 2024-04-16 11:47:12 2024-04-16 11:47:12 Outpatient SFA SFA [id number] Daniel Rowan Ramsey 2024-03-31 15:56:36 2024-03-31 15:56:36 Outpatient SFA SFA [id number] Daniel Rowan Ramsey 2024-03-31 00:00:00 2024-03-31 00:00:00 Outpatient Visit SFA [id number] Daniel Rowan Ramsey 2023-12-26 16:36:43 2023-12-26 16:36:43 Outpatient SFA SFA [id number] Daniel Rowan [place] 2023-11-24 15:15:18 2023-11-24 15:15:18 Outpatient SFA SFA [id number] Daniel Rowan Ramsey 2023-10-27 11:31:43 2023-10-27 11:31:43 Outpatient SFA SFA [id number] Daniel Rowan Ramsey 2023-10-06 14:37:34 2023-10-06 14:37:34 Outpatient SFA SFA [id number] Daniel Mustafa 2023-10-01 09:45:41 2023-10-01 09:45:41 Outpatient SFA SFA [id number] Daniel Mustafa 2023-09-29 14:10:06 2023-09-29 14:10:06 Outpatient SFA [facility] [id number] Daniel Mustafa 2023-09-08 08:40:50 2023-09-08 08:40:50 Outpatient SFA [facility] [id number] Daniel Mustafa 2023-08-26 11:03:06 2023-08-26 11:03:06 Outpatient [facility] [id number] Daniel Mustafa 2023-07-24 15:25:37 2023-07-24 15:25:37 Outpatient SFA [facility] [id number] Daniel Mustafa 2023-06-16 10:45:39 2023-06-16 10:45:39 Outpatient SFA [facility] [id number] Daniel Mustafa 2023-06-10 08:12:46 2023-06-10 08:12:46 Outpatient SFA [facility] [id number] Daniel Mustafa 2023-06-02 11:22:48 2023-06-02 11:22:48 Outpatient SFA [facility] [id number] Daniel Mustafa Results Test Description Test Time Test Comments Results Result Co mments Source Daniel MustafaCOMPREHENSIVE METABOLIC [id number] 00:00:00* Test Item Value Reference Range Interpretation Comme nts GLUCOSE (test code = 2217) 108 MG/DL BUN (test code = 2208) 8 MG/DL CREATININE (test code = 2214) 0.63 MG/DL eGFR (2020 CKD-EPI) (test code = 53289) 105 ML/MIN/1.73 CALC BUN/CREAT (test code = 2235) 13 RATIO SODIUM (test code = 2231) 144 MEQ/L POTASSIUM (test code = 2228) 3.8 MEQ/L CHLORIDE (test code = 2215) 102 MEQ/L CARBON DIOXIDE (test code = 2206) 26 MEQ/L CALCIUM (test code = 2209) 9.8 MG/DL PROTEIN, TOTAL (test code = 2229) 6.1 G/DL ALBUMIN (test code = 2201) 3.9 G/DL CALC GLOBULIN (test code = 2240) 2.2 G/DL CALC A/G RATIO (test code = 2234) 1.8 RATIO BILIRUBIN, TOTAL (test code = 2207) <0.2 MG/DL ALKALINE PHOSPHATASE (test code = 2204) 169 U/L AST (test code = 2218) 13 U/L ALT (test code = 2219) 32 U/L Daniel Rowan AustinURIC [id number] 00:00:00* Test Item Value Reference Range Interpretation Comme nts URIC ACID (test code = 2233) 2.7 MG/DL Daniel MustafaRHEUMATOID FACTOR, [id number] 00:00:00* Test Item Value Reference Range Interpretation Comme [facility] RHEUMATOID FACTOR, QUANT (te st code = 3502) 12 IU/ML Daniel Rowan AustinSEDIMENTATION [id number] 00:00:00* Test Item Value Reference Range Interpretation Comme nts SEDIMENTATION RATE (test cod e = 1017) 46 MM/HOUR Daniel Rowan [place], 25 [id number] 06:52:57* Test Item Value Reference Range Interpretation Comme [facility] VITAMIN D, 25 OH (test code = 4958) 30 NG/ML SEE BELOW EFFECTIVE 04/2023, PLEASE NOTE NEW METHODOLOGY IS ELECTROCHEMILUMINESCENCE BINDING ASSAY. NOTE: 25-HYDROXYVITAMIN D ASSAY INCLUDES 25-HYDROXYVITAMIN D2 AND D3. INTERPRETIVE RANGES PEDIATRIC (<17 YEARS) . . . . . . . . . . . NG/ML 20-100ADULT: INSUFFICIENT . . . . . . . . . . . . . . NG/ML <20 SUBOPTIMAL . . . . . . . . . . . . . . . NG/ML 20-29 OPTIMAL . . . . . . . . . . . . . . . . . NG/ML 30-100 UNLESS OTHERWISE INDICATED, ALL TESTING PERFORMED AT [facility] [address] [place] [address] QUILL STRIPPER: JARED MARTÍNEZ M.D. CLIA NUMBER [id number] [place]. [id number] TSH, THIRD [id number] 06:50:58* Test Item Value Reference Range Interpretation Comme nts TSH, THIRD GENERATION (test code = 2821) 2.560 UIU/ML 0.400-4.100 LIPID [id number] 06:00:10* Test Item Value Reference Range Interpretation Comme nts CHOLESTEROL (test code = 2210) 196 MG/DL <200 TRIGLYCERIDES (test code = 2232) 150 MG/DL <150 H HDL CHOLESTEROL (test code = 2220) 52 MG/DL >39 CALC LDL CHOL (test code = 2237) 118 MG/DL <100 H NOTE: CALCULATED LDL IS BASED ON SARIAH-LAWSON METHOD WHICHINCLUDES ADJUSTABLE TRIGLYCERIDE:VLDL CHOLESTEROL RATIO.THIS FACTOR VARIES BY MEASURED TRIGLYCERIDE AND NON-HDLCHOLESTEROL CONCENTRATIONS WITH INCREASED CALCULATED LDL SEENIN HIGHER TRIGLYCERIDE OR LOWER NON-HDL SPECIMENS. FOR MOREINFORMATION, SEE CLIENT ANNOUNCEMENT AT [email or web address] RISK RATIO LDL/HDL (test code = 223) 2.27 RATIO <3.22 COMPREHENSIVE METABOLIC [id number] 06:00:10* Test Item Value Reference Range Interpretation Comme nts GLUCOSE (test code = 2217) 101 MG/DL 70-99 H BUN (test code = 220) 12 MG/DL 6-20 CREATININE (test code = 2214) 0.64 MG/DL 0.60-1.30 eGFR (2020 CKD-EPI) (test code = 67366) 106 ML/MIN/1.73 >60 CALC BUN/CREAT (test code = 2235) 19 RATIO 6-28 SODIUM (test code = 223) 140 MEQ/L 133-146 POTASSIUM (test code = 2228) 4.3 MEQ/L 3.5-5.4 CHLORIDE (test code = 2215) 105 MEQ/L 95-107 CARBON DIOXIDE (test code = 2206) 22 MEQ/L 19-31 CALCIUM (test code = 2209) 10.0 MG/DL 8.5-10.5 PROTEIN, TOTAL (test code = 222) 6.6 G/DL 6.1-8.3 ALBUMIN (test code = 2201) 4.6 G/DL 3.5-5.2 CALC GLOBULIN (test code = 2240) 2.0 G/DL 1.9-3.7 CALC A/G RATIO (test code = 2234) 2.3 RATIO 1.0-2.6 BILIRUBIN, TOTAL (test code = 2207) 0.3 MG/DL <=1.2 ALKALINE PHOSPHATASE (test code = 2204) 105 U/L 40-133 AST (test code = 2218) 19 U/L 9-40 ALT (test code = 2219) 26 U/L 5-40 CBC W/AUTO DIFF WITH [id number] 05:59:26* Test Item Value Reference Range Interpretation Comme nts WBC (test code = 1001) 9.2 K/UL 3.5-11.0 RBC (test code = 1002) 4.99 M/UL 3.80-5.40 HEMOGLOBIN (test code = 1003) 13.9 G/DL 11.5-15.5 HEMATOCRIT (test code = 1004) 41.4 % 34.0-45.0 MCV (test code = 1005) 83.0 fL 80.0-99.0 MCH (test code = 1006) 27.9 PG 25.0-33.0 MCHC (test code = 1007) 33.6 G/DL 31.0-36.0 RDW (test code = 1038) 14.1 % 11.5-15.0 NEUTROPHILS (test code = 1008) 58.8 % LYMPHOCYTES (test code = 1010) 32.4 % MONOCYTES (test code = 1011) 6.8 % EOSINOPHILS (test code = 1012) 1.2 % BASOPHILS (test code = 1013) 0.5 % IMMATURE GRANULOCYTES (test code = 1036) 0.3 % NUCLEATED RBCS (test code = 1065) 0.0 /100 WBC'S See_Comment [Automated messa ge] The system which generated this result transmitted reference range: 0.0. The reference range was not used to interpret this result as normal/abnormal. PLATELET COUNT (test code = 1015) 321 K/UL 130-400 ABSOLUTE NEUTROPHILS (test code = 1066) 5.40 K/UL 1.50-7.50 ABSOLUTE LYMPHOCYTES (test code = 1067) 2.98 K/UL 1.00-4.00 ABSOLUTE MONOCYTES (test code = 1068) 0.63 K/UL 0.20-1.00 ABSOLUTE EOSINOPHILS (test code = 1040) 0.11 K/UL 0.00-0.50 ABSOLUTE BASOPHILS (test code = 1069) 0.05 K/UL 0.00-0.20 ABS IMMATURE GRANULOCYTES (test code = 1020) 0.03 K/UL 0.00-0.10 ABS NUCLEATED RBCS (test code = 63223) 0.00 K/UL 0.00-0.11 CBC W/AUTO [id number] 00:00:00* Test Item Value Reference Range Interpretation Comme nts WBC (test code = 1001) 9.2 K/UL RBC (test code = 1002) 4.99 M/UL HEMOGLOBIN (test code = 1003) 13.9 G/DL HEMATOCRIT (test code = 1004) 41.4 % MCV (test code = 1005) 83.0 fL MCH (test code = 1006) 27.9 PG MCHC (test code = 1007) 33.6 G/DL RDW (test code = 1038) 14.1 % NEUTROPHILS (test code = 1008) 58.8 % LYMPHOCYTES (test code = 1010) 32.4 % MONOCYTES (test code = 1011) 6.8 % EOSINOPHILS (test code = 1012) 1.2 % BASOPHILS (test code = 1013) 0.5 % IMMATURE GRANULOCYTES (test code = 1036) 0.3 % NUCLEATED RBCS (test code = 1065) 0.0 /100WBC'S PLATELET COUNT (test code = 1015) 321 K/UL ABSOLUTE NEUTROPHILS (test c ode = 1066) 5.40 K/UL ABSOLUTE LYMPHOCYTES (test c ode = 1067) 2.98 K/UL ABSOLUTE MONOCYTES (test cod e = 1068) 0.63 K/UL ABSOLUTE EOSINOPHILS (test c ode = 1040) 0.11 K/UL ABSOLUTE BASOPHILS (test cod e = 1069) 0.05 K/UL ABS IMMATURE GRANULOCYTES (t est code = 1020) 0.03 K/UL ABS NUCLEATED RBCS (test cod e = 54434) 0.00 K/UL Daniel F AustinLIPID [id number] 00:00:00* Test Item Value Reference Range Interpretation Comme nts CHOLESTEROL (test code = 2210) 196 MG/DL TRIGLYCERIDES (test code = 2232) 150 MG/DL HDL CHOLESTEROL (test code = 2220) 52 MG/DL CALC LDL CHOL (test code = 2237) 118 MG/DL RISK RATIO LDL/HDL (test cod e = 2238) 2.27 RATIO Daniel MustafaCOMPREHENSIVE METABOLIC [id number] 00:00:00* Test Item Value Reference Range Interpretation Comme nts GLUCOSE (test code = 2217) 101 MG/DL BUN (test code = 2208) 12 MG/DL CREATININE (test code = 2214) 0.64 MG/DL eGFR (2020 CKD-EPI) (test code = 97038) 106 ML/MIN/1.73 CALC BUN/CREAT (test code = 2235) 19 RATIO SODIUM (test code = 2231) 140 MEQ/L POTASSIUM (test code = 2228) 4.3 MEQ/L CHLORIDE (test code = 2215) 105 MEQ/L CARBON DIOXIDE (test code = 2206) 22 MEQ/L CALCIUM (test code = 2209) 10.0 MG/DL PROTEIN, TOTAL (test code = 2229) 6.6 G/DL ALBUMIN (test code = 2201) 4.6 G/DL CALC GLOBULIN (test code = 2240) 2.0 G/DL CALC A/G RATIO (test code = 2234) 2.3 RATIO BILIRUBIN, TOTAL (test code = 2207) 0.3 MG/DL ALKALINE PHOSPHATASE (test code = 2204) 105 U/L AST (test code = 2218) 19 U/L ALT (test code = 2219) 26 U/L Daniel MustafaTSH, THIRD [id number] 00:00:00* Test Item Value Reference Range Interpretation Comme nts TSH, THIRD GENERATION (test code = 2821) 2.560 UIU/ML Daniel MustafaVITAMIN D, 25 [id number] 00:00:00* Test Item Value Reference Range Interpretation Comme nts VITAMIN D, 25 OH (test code = 4958) 30 NG/ML Daniel MustafaCBC W/AUTO [id number] 00:00:00* Test Item Value Reference Range Interpretation Comme nts WBC (test code = 1001) 9.2 K/UL RBC (test code = 1002) 4.99 M/UL HEMOGLOBIN (test code = 1003) 13.9 G/DL HEMATOCRIT (test code = 1004) 41.4 % MCV (test code = 1005) 83.0 fL MCH (test code = 1006) 27.9 PG MCHC (test code = 1007) 33.6 G/DL RDW (test code = 1038) 14.1 % NEUTROPHILS (test code = 1008) 58.8 % LYMPHOCYTES (test code = 1010) 32.4 % MONOCYTES (test code = 1011) 6.8 % EOSINOPHILS (test code = 1012) 1.2 % BASOPHILS (test code = 1013) 0.5 % IMMATURE GRANULOCYTES (test code = 1036) 0.3 % NUCLEATED RBCS (test code = 1065) 0.0 /100WBC'S PLATELET COUNT (test code = 1015) 321 K/UL ABSOLUTE NEUTROPHILS (test c ode = 1066) 5.40 K/UL ABSOLUTE LYMPHOCYTES (test c ode = 1067) 2.98 K/UL ABSOLUTE MONOCYTES (test cod e = 1068) 0.63 K/UL ABSOLUTE EOSINOPHILS (test c ode = 1040) 0.11 K/UL ABSOLUTE BASOPHILS (test cod e = 1069) 0.05 K/UL ABS IMMATURE GRANULOCYTES (t est code = 1020) 0.03 K/UL ABS NUCLEATED RBCS (test cod e = 77822) 0.00 K/UL Daniel Harpal Sel[place]LIPID [id number] 00:00:00* Test Item Value Reference Range Interpretation Comme nts CHOLESTEROL (test code = 2210) 196 MG/DL TRIGLYCERIDES (test code = 2232) 150 MG/DL HDL CHOLESTEROL (test code = 2220) 52 MG/DL CALC LDL CHOL (test code = 2237) 118 MG/DL RISK RATIO LDL/HDL (test cod e = 2238) 2.27 RATIO Daniel MustafaCOMPREHENSIVE METABOLIC [id number] 00:00:00* Test Item Value Reference Range Interpretation Comme nts GLUCOSE (test code = 2217) 101 MG/DL BUN (test code = 2208) 12 MG/DL CREATININE (test code = 2214) 0.64 MG/DL eGFR (2020 CKD-EPI) (test code = 93912) 106 ML/MIN/1.73 CALC BUN/CREAT (test code = 2235) 19 RATIO SODIUM (test code = 2231) 140 MEQ/L POTASSIUM (test code = 2228) 4.3 MEQ/L CHLORIDE (test code = 2215) 105 MEQ/L CARBON DIOXIDE (test code = 2206) 22 MEQ/L CALCIUM (test code = 2209) 10.0 MG/DL PROTEIN, TOTAL (test code = 2229) 6.6 G/DL ALBUMIN (test code = 2201) 4.6 G/DL CALC GLOBULIN (test code = 2240) 2.0 G/DL CALC A/G RATIO (test code = 2234) 2.3 RATIO BILIRUBIN, TOTAL (test code = 2207) 0.3 MG/DL ALKALINE PHOSPHATASE (test code = 2204) 105 U/L AST (test code = 2218) 19 U/L ALT (test code = 2219) 26 U/L Daniel MustafaTSH, THIRD [id number] 00:00:00* Test Item Value Reference Range Interpretation Comme nts TSH, THIRD GENERATION (test code = 2821) 2.560 UIU/ML Daniel MustafaVITAMIN D, 25 [id number] 00:00:00* Test Item Value Reference Range Interpretation Comme nts VITAMIN D, 25 OH (test code = 4958) 30 NG/ML Daniel MustafaCBC W/AUTO [id number] 00:00:00* Test Item Value Reference Range Interpretation Comme nts WBC (test code = 1001) 9.2 K/UL RBC (test code = 1002) 4.99 M/UL HEMOGLOBIN (test code = 1003) 13.9 G/DL HEMATOCRIT (test code = 1004) 41.4 % MCV (test code = 1005) 83.0 fL MCH (test code = 1006) 27.9 PG MCHC (test code = 1007) 33.6 G/DL RDW (test code = 1038) 14.1 % NEUTROPHILS (test code = 1008) 58.8 % LYMPHOCYTES (test code = 1010) 32.4 % MONOCYTES (test code = 1011) 6.8 % EOSINOPHILS (test code = 1012) 1.2 % BASOPHILS (test code = 1013) 0.5 % IMMATURE GRANULOCYTES (test code = 1036) 0.3 % NUCLEATED RBCS (test code = 1065) 0.0 /100WBC'S PLATELET COUNT (test code = 1015) 321 K/UL ABSOLUTE NEUTROPHILS (test c ode = 1066) 5.40 K/UL ABSOLUTE LYMPHOCYTES (test c ode = 1067) 2.98 K/UL ABSOLUTE MONOCYTES (test cod e = 1068) 0.63 K/UL ABSOLUTE EOSINOPHILS (test c ode = 1040) 0.11 K/UL ABSOLUTE BASOPHILS (test cod e = 1069) 0.05 K/UL ABS IMMATURE GRANULOCYTES (t est code = 1020) 0.03 K/UL ABS NUCLEATED RBCS (test cod e = 27079) 0.00 K/UL Daniel MustafaLIPID [id number] 00:00:00* Test Item Value Reference Range Interpretation Comme nts CHOLESTEROL (test code = 2210) 196 MG/DL TRIGLYCERIDES (test code = 2232) 150 MG/DL HDL CHOLESTEROL (test code = 2220) 52 MG/DL CALC LDL CHOL (test code = 2237) 118 MG/DL RISK RATIO LDL/HDL (test cod e = 2238) 2.27 RATIO Daniel MustafaCOMPREHENSIVE METABOLIC [id number] 00:00:00* Test Item Value Reference Range Interpretation Comme nts GLUCOSE (test code = 2217) 101 MG/DL BUN (test code = 2208) 12 MG/DL CREATININE (test code = 2214) 0.64 MG/DL eGFR (2020 CKD-EPI) (test code = 23789) 106 ML/MIN/1.73 CALC BUN/CREAT (test code = 2235) 19 RATIO SODIUM (test code = 2231) 140 MEQ/L POTASSIUM (test code = 2228) 4.3 MEQ/L CHLORIDE (test code = 2215) 105 MEQ/L CARBON DIOXIDE (test code = 2206) 22 MEQ/L CALCIUM (test code = 2209) 10.0 MG/DL PROTEIN, TOTAL (test code = 2229) 6.6 G/DL ALBUMIN (test code = 2201) 4.6 G/DL CALC GLOBULIN (test code = 2240) 2.0 G/DL CALC A/G RATIO (test code = 2234) 2.3 RATIO BILIRUBIN, TOTAL (test code = 2207) 0.3 MG/DL ALKALINE PHOSPHATASE (test code = 2204) 105 U/L AST (test code = 2218) 19 U/L ALT (test code = 2219) 26 U/L Daniel MustafaTSH, THIRD [id number] 00:00:00* Test Item Value Reference Range Interpretation Comme nts TSH, THIRD GENERATION (test code = 2821) 2.560 UIU/ML Daniel MustafaVITAMIN D, 25 [id number] 00:00:00* Test Item Value Reference Range Interpretation Comme nts VITAMIN D, 25 OH (test code = 4958) 30 NG/ML Daniel Mustafa Notes Upcoming Encounters Date/Time Note Provider Source Health Maintenance Due Date Last Done Comments CT Colonography 1970 Colonoscopy 1970 Colorectal Cancer Screening 1970 FIT-DNA 1970 FIT 1970 FOBT 1970 Sigmoidoscopy 1970 Annual Physical 1973 DTaP/Tdap/Td Vaccines (1 - Tdap) 1989 Hepatitis B Vaccines (1 of 3 - 19+ 3-dose series) 1989 Pap Smear 1991 Cervical Cancer Screening 02/13/2000 HPV/Cotest 02/13/2000 Mammogram 2010 Zoster Vaccines (1 of 2) 02/13/2020 Influenza Vaccine (#1) 2024 HIB Vaccines Aged Out No longer eligi ble based on patient's age to complete this topic HPV Vaccines Aged Out No longer eligi ble based on patient's age to complete this topic Hepatitis A Vaccines Aged Out No long er eligible based on patient's age to complete this topic IPV Vaccines Aged Out No longer eligi ble based on patient's age to complete this topic Meningococcal Vaccine Aged Out No cady gloria eligible based on patient's age to complete this topic Pneumococcal Vaccine: Pediat rics (0 to 5 Years) and At-Risk Patients (6 to 64 Years) Aged Out No longer eligible b ased on patient's age to complete this topic Rotavirus Vaccines Aged Out No longer eligible based on patient's age to complete this topic [id number] 16:00[facility]07 Got a fax from [facility] stating they do not do ultrasounds there. Left voicemail for patient requesting she call us back to let me know where to resend the orders. MANAGING DIRECTOR [id number] 09:40:58 [id number] 09:40:58* [id number] 09:40:58Upcoming Encounters Health Maintenance Due Date Last Done Comments CT Colonography 1970 Colonoscopy 1970 Colorectal Cancer Screening 1970 FIT-DNA 1970 FIT 1970 FOBT 1970 Sigmoidoscopy 1970 Annual Physical 1973 DTaP/Tdap/Td Vaccines (1 - Tdap) 1989 Hepatitis B Vaccines (1 of 3 - 19+ 3-dose series) 1989 Pap Smear 1991 Cervical Cancer Screening 02/13/2000 HPV/Cotest 02/13/2000 Mammogram 2010 Zoster Vaccines (1 of 2) 02/13/2020 Influenza Vaccine (#1) 2024 HIB Vaccines Aged Out No longer eligi ble based on patient's age to complete this topic HPV Vaccines Aged Out No longer eligi ble based on patient's age to complete this topic Hepatitis A Vaccines Aged Out No long er eligible based on patient's age to complete this topic IPV Vaccines Aged Out No longer eligi ble based on patient's age to complete this topic Meningococcal Vaccine Aged Out No cady gloria eligible based on patient's age to complete this topic Pneumococcal Vaccine: Pediat rics (0 to 5 Years) and At-Risk Patients (6 to 64 Years) Aged Out No longer eligible b ased on patient's age to complete this topic Rotavirus Vaccines Aged Out No longer eligible based on patient's age to complete this topic [id number] 10:05:[address] Renal US, and KUB orders. Pt is requesting to get imaging done at [facility] in [place]. P- [phone] F- [phone] [facility] [facility]2024-11-18 00:00:[address] [facility]2024-08-28 00:00:[address] [facility]
[2024-10-05] MEDS ORDERED: NA CHLORIDE 0.9% 1,000 ML ONE (00:38)
[2024-10-05] MEDS ORDERED: ONDANSETRON 4 MG/2 ML VIAL ONE (00:38)
[2024-10-05 00:54] LABS: Absolute Basophils 0.1 K/uL (0-0.5); Absolute Eosinophils 0.2 K/uL (0-0.5); Absolute Lymphocytes (CBC) 1.5 K/uL (0.7-4.9); Absolute Monocytes 0.2 K/uL (0.1-1.3); Absolute Neutrophil 8.3 K/uL (1.8-8.0); Basophils % 0.7 % (0-1.3); Eosinophils % 1.7 % (0-4.4); Hematocrit 33.8 % (36.0-45.0); Hemoglobin 11.3 g/dL (12.0-15.0); Lymphocytes % 14.2 % (15.3-44.8); MCH 26.8 pg (27.0-35.0); MCHC 33.3 g/dL (32.0-36.0); MCV 80.4 fL (80-100); MPV 8.6 fL (7.6-11.3); Neutrophils % 81.4 % (41.7-73.7); Nucleated Red Blood Cells % 0.1 % (0-0); Platelets 223 thou/uL (152-406); Red Cell Distribution Width 17.6 % (12.1-15.2)
[2024-10-05 01:01] LABS: Specific Gravity > 1.030 (1.005-1.030); Sqamous Epithelial <5 /HPF (None Seen); Urine Bacteria None Seen /HPF (<20); Urine Bilirubin NEGATIVE (Negative); Urine Blood 3+ (OVER) (Negative); Urine Clarity Extremely Turbid (Clear); Urine Color Yellow (Yellow); Urine Culture Reflex Order REFLEXED; Urine Glucose NEGATIVE (Negative); Urine Ketones NEGATIVE (Negative); Urine Microscopic Reflex YN ORDER UMIC; Urine Mucus Slight /HPF (None Seen); Urine Nitrite NEGATIVE (Negative); Urine Protein 1+ (Negative); Urine RBC >50 /HPF (None Seen); Urine Urobilinogen 1+ (Normal); Urine WBC 20-50 /HPF (<5); Urine WBC Clump Rare /HPF (None Seen); Urine pH 5.5 (5.0-7.0)
[2024-10-05 01:02] LABS: Albumin 3.1 g/dL (3.4-5.0); Albumin/Globulin Ratio 1.1 (1.1-1.8); Anion Gap 7.5 mEq/L (5.0-15.0); Bilirubin Total 0.3 mg/dL (0.2-1.0); Globulin 2.9 g/dL (2.3-3.5); Potassium 3.5 mEq/L (3.5-5.1)
[2024-10-05 01:08] LABS: Specific Gravity > 1.030 (1.005-1.030)
[2024-10-05] MEDS ORDERED: MORPHINE 4 MG/ML SYR ONE (01:44)
[2024-10-05] MEDS ORDERED: CEFTRIAXONE 1000 MG/VIAL ONE (01:45)
[2024-10-05] MEDS ORDERED: NA CHLORIDE 0.9% 50 ML ONE (01:45)
--- NOTE | 2024-10-05 02:35 | RAD REPORT ---
EXAM: CT Abdomen and Pelvis Without Intravenous Contrast CLINICAL HISTORY: The patient is 54 years old and is Female; FLANK PAIN TECHNIQUE: Axial computed tomography images of the abdomen and pelvis without intravenous contrast. Sagittal and coronal reformatted images were created and reviewed. This CT exam was performed using one or more of the following dose reduction techniques: automated exposure control, adjustmen t of the mA and/or kV according to patient size, and/or use of iterative reconstruction technique. COMPARISON: No relevant prior studies available. FINDINGS: Lung bases: Unremarkable. No mass. No consolidation. Mediastinum: Hiatal hernia. ABDOMEN: Liver: Unremarkable. Gallbladder and bile ducts: Gallbladder is surgically absent. No ductal dilation. Pancreas: Unremarkable. No ductal dilation. Spleen: Unremarkable. No splenomegaly. Adrenals: Unremarkable. No mass. Kidneys and ureters: 1.5 and 2 mm right UVJ stones. Mild right hydroureteronephrosis and perineph mel/periureteral stranding. Nonobstructing calcification in the left kidney. Stomach and bowel: Unremarkable. No obstruction. No mucosal thickening. PELVIS: Appendix: No findings to suggest acute appendicitis. Bladder: Unremarkable. Reproductive: Unremarkable as visualized. ABDOMEN and PELVIS: Intraperitoneal space: Unremarkable. No free air. No significant fluid collection. Bones/joints: Prior vertebral augmentation at L2. No acute fracture. No dislocation. Soft tissues: Unremarkable. Vasculature: Unremarkable. No abdominal aortic aneurysm. Lymph nodes: Unremarkable. No enlarged lymph nodes. IMPRESSION: 1.5 and 2 mm right UVJ stones. Mild right hydroureteronephrosis and perinephric/periureteral strand ing. Electronically signed by: Flaquito Wan MD 10/05/2024 02:27 AM [facility] 8 Due to temporary technical issues with the PACS/[employer] reporting system, reports are being edi d by the in-house radiologist without review as a courtesy to ensure prompt reporting the interpreting radiologist is fully responsible for the content of the report. Transcribed Date/Time: 10/05/2024 2:35 AM
--- NOTE | 2024-10-05 02:38 | EDPHYS ---
Physician Documentation [facility] Name: Emily Barber Age: 54 yrs Sex: Female : 1970 Arrival Date: 10/04/2024 Time: 23:55 Bed 16 Private MD: ED Physician Presley Becker HPI: 10/05 00:46 This 54 yrs old Female presents to ER via Ambulatory with complaints of Low dr5 Back Pain, Nausea/Vomiting, Fever, Urinary Retention, HEMATURIA. 00:46 The patient presents with pain that is acute, with no known mechanism of injury. The dr5 symptoms are located in the low back. Onset: The symptoms/episode began/occurred 1 day(s) ago. Patient is a 54-year-old female with history of kidney stones coming in with right-sided flank pain and hematuria that started tonight. Patient reports that she laid down and became nauseated. Patient denies fever.. CRISIS INTERVENTION SPECIALIST: 00:05 LMP N/A - Hysterectomy, Not rg5 - Immunization history:: Adult Immunizations not up to date. - Infectious Disease History:: Denies. - Social history:: Smoking status: Patient reports the use of cigarette tobacco products, smokes one pack cigarettes per day. ROS: 00:46 Constitutional: as per hpi dr5 Exam: 00:47 Constitutional: This is a well developed, well nourished patient who is awake, alert, dr5 and in no acute distress. Head/Face: Normocephalic, atraumatic. ENT: Nares patent. No nasal discharge, no septal abnormalities noted. Tympanic membranes are normal and external auditory canals are clear. Oropharynx with no redness, swelling, or masses, exudates, or evidence of obstruction, uvula midline. Mucous membranes moist. Neck: Trachea midline, no thyromegaly or masses palpated, and no cervical lymphadenopathy. Supple, full range of motion without nuchal rigidity, or vertebral point tenderness. No Meningismus. Chest/axilla: Normal chest wall appearance and motion. Nontender with no deformity. No lesions are appreciated. Cardiovascular: Regular rate and rhythm with a normal S1 and S2. Normal PMI, no JVD. No pulse deficits. Respiratory: Lungs have equal breath sounds bilaterally, clear to auscultation. No rales, rhonchi or wheezes noted. No increased work of breathing, no retractions or nasal flaring. 00:47 Back: No spinal tenderness. No costovertebral tenderness. Full range of motion. Skin: Warm, dry with normal turgor. Normal color with no rashes, no lesions, and no evidence of cellulitis. Neuro: Awake and alert, GCS 15, oriented to person, place, time, and situation. Cranial nerves II-XII grossly intact. Motor strength 5/5 in all extremities. Sensory grossly intact. Cerebellar exam normal. Normal gait. 00:47 Back: pain, that is moderate, of the right mid back, ROM is normal, normal spinal alignment noted, CVA tenderness, that is moderate, is noted on the right, Vital Signs: 00:05 BP 116 / 79; Pulse 79; Resp 18; Temp 98.7; Pulse Ox 98% ; Weight 75.5 kg; Height 5 ft. rg5 4 in. ; Pain 10/10; 00:05 BP 116 / 79; Pulse 79; Resp 17; Temp 98.7; Pulse Ox 98% ; Weight 75.5 kg; Height 5 ft. rg5 4 in. ; Pain 10/10; 02:12 BP 126 / 74; Pulse 87; Resp 17; Pulse Ox 98% on R/A; Pain 3/10; rg5 00:05 Body Mass Index 28.57 (75.50 kg, 162.56 cm) rg5 00:05 Pain Scale: Adult rg5 00:05 Pain Scale: Adult rg5 02:12 Pain Scale: Adult rg5 MDM: 00:02 Medical Screening Exam initiated dr5 02:17 Differential diagnosis: strain, sciatica, Kidney Stone, UTI. Data reviewed: vital dr5 signs, nurses notes. I considered the following discharge prescriptions or medication management in the emergency department Medications were administered in the Emergency Department. See MAR. Care significantly affected by the following Social Determinants of Health: Poor access to healthcare and/or lack of insurance, Poor access to transportation, Problems related to employment. Counseling: I had a detailed discussion with the patient and/or guardian regarding the historical points, exam findings, and any diagnostic results supporting the discharge/admit diagnosis, the presence of at least one elevated blood pressure reading (>120/80) during this emergency department visit, lab results, radiology results, the need for outpatient follow up, for definitive care, a family practitioner, a urologist, to return to the emergency department if symptoms worsen or persist or if there are any questions or concerns that arise at home. Medication response: NS. Transition of care: After a detail discussion of the patient's case, care is transferred to Presley Becker MD. ED course: Discussed kidney stone on wet read of CT with patient. Will give cephalexin, Flomax, tramadol and have patient follow-up with urology. Patient reports that she is feeling much better and will follow-up with primary care doctor. Pending final read of CT prior to discharge.. 10/05 00:05 Order name: CBC with Diff; Complete Time: dr5 10/05 00:05 Order name: CMP; Complete Time: dr5 10/05 00:05 Order name: Lipase; Complete Time: dr5 10/05 00:05 Order name: Test, Urine; Complete Time: dr5 10/05 00:05 Order name: Urinalysis w/ reflexes; Complete Time: dr5 10/05 01:10 Order name: Urine Culture EDIN 10/05 00:06 Order name: Stone Protocol CT [facility] 10/05 00:06 Order name: IV Saline Lock; Complete Time: 00:35 dr5 10/05 00:06 Order name: Labs collected and sent; Complete Time: 00:36 dr5 Administered Medications: 00:30 Drug: Ondansetron IVP 4 mg IVP once; over 2 minutes Route: IVP; Site: left antecubital; rg5 01:25 Follow up: Response: No adverse reaction rg5 00:30 Drug: NS 0.9% IV 1000 ml IV at 1 bolus Per protocol; to be given as a bolus over 60 rg5 minutes Route: IV; Rate: 1 bolus; Site: left antecubital; 02:11 Follow up: IV Status: Completed infusion; IV Intake: 1000ml rg5 01:47 Drug: Rocephin IV 1 grams IV at per protocol once; Given slow IV push per pharmacy rg5 instructions Route: IV; Rate: per protocol; Site: left antecubital; 02:11 Follow up: IV Status: Completed infusion; IV Intake: 50ml rg5 02:14 Drug: morphine IVP or IV 4 mg IVP once over 4 mins Route: IVP; Infused Over: 4 mins; rg5 Site: left antecubital; 02:58 Follow up: Response: No adverse reaction; Pain is decreased rg5 02:39 Drug: Promethazine IVP 12.5 mg IVP once Route: IVP; Site: left antecubital; rg5 02:58 Follow up: Response: No adverse reaction rg5 Disposition Summary: 10/05/24 02:38 Discharge Ordered Notes: Location: Home sp3 Condition: Stable sp3 Diagnosis - Urinary calculus, unspecified sp3 Followup: dr5 - With: Emergency Department - When: As needed - Reason: Worsening of condition Followup: dr5 - With: Private Physician - When: 1 - 2 days - Reason: Recheck today's complaints, Continuance of care, Re-evaluation by your physician Discharge Instructions: - Discharge Summary Sheet dr5 - Kidney Stones dr5 Forms: - Medication Reconciliation Form sp3 - Antibiotic Education sp3 - Prescription Opioid Use sp3 - Patient Portal Instructions sp3 - Leadership Thank You Letter sp3 Prescriptions: - Flomax 0.4 mg Oral capsule - take 1 capsule ORAL route once; 20 capsule; Refills: 0, Product Selection dr5 Permitted - Cephalexin 500 mg Oral capsule - take 1 capsule ORAL route every 12 hours for 7 days; 14 capsule; Refills: 0, dr5 Product Selection Permitted - Tramadol 50 mg Oral Tablet - take 1 tablet ORAL route every 8 hours as needed; 12 tablet; Refills: 0, dr5 Product Selection Permitted Signatures: Dispatcher [employer] Presley Lay MD MD sp3 Luis Franco RN RN rg5 Srinivasan Noel FNP-C FURNACE SETTER-Cdr5 Corrections: (The following items were deleted from the chart) 00:06 00:06 CBC+H.LAB.BRZ ordered. EDMS EDMS 00:06 00:06 COMPREHENSIVE METABOLIC PANEL+C.LAB.BRZ ordered. EDMS EDMS 00:06 00:06 LIPASE+C.LAB.BRZ ordered. EDMS EDMS 00:06 00:06 Test, Urine+UC.LAB.BRZ ordered. EDMS EDMS 00:06 00:06 Urinalysis+U.LAB.BRZ ordered. EDMS EDMS 00:06 00:06 Stone Protocol+CT.RAD.BRZ ordered. EDMS EDMS
--- NOTE | 2024-10-05 02:38 | ER ---
Nurse's Notes [facility] Name: Emily Barber Age: 54 yrs Sex: Female : 1970 Arrival Date: 10/04/2024 Time: 23:55 Bed 16 Private MD: Diagnosis: Urinary calculus, unspecified Presentation: 10/05 00:05 Chief complaint: Patient states: right flank pain started around 8pm and its getting rg5 worst, had a reddish urine output earlier. 00:05 Coronavirus screen: Client denies travel out of the [place] in the last 14 days. Ebola rg5 Screen: Patient negative for fever greater than or equal to 101.5 degrees Fahrenheit, and additional compatible Ebola Virus Disease symptoms. Initial Sepsis Screen: Does the patient meet any 2 criteria? No. Patient's initial sepsis screen is negative. Does the patient have a suspected source of infection? No. Patient's initial sepsis screen is negative. Risk Assessment: Do you want to hurt yourself or someone else? Patient reports no desire to harm self or others. Onset of symptoms was October 05, 2024. 00:05 Method Of Arrival: Ambulatory rg5 00:05 Acuity: KAMILLA 3 rg5 Triage Assessment: 00:05 General: Appears uncomfortable, Behavior is calm, cooperative, appropriate for age. rg5 Pain: Complains of pain in right mid back. EENT: No deficits noted. Neuro: Level of Consciousness is awake, alert, Oriented to person, place, time, situation. Cardiovascular: Denies chest pain. Respiratory: Airway is patent Trachea midline Respiratory effort is even, unlabored, Respiratory pattern is regular, symmetrical. GI: Abdomen is round non-distended, Reports lower abdominal pain, nausea. : Reports burning with urination, pain in right flank(s). Derm: Skin is intact, Skin is dry, Skin is normal. Musculoskeletal: Circulation, motion, and sensation intact. Range of motion: intact in all extremities. ENT NURSE: 00:05 LMP N/A - Hysterectomy, Not rg5 - Immunization history:: Adult Immunizations not up to date. - Infectious Disease History:: Denies. - Social history:: Smoking status: Patient reports the use of cigarette tobacco products, smokes one pack cigarettes per day. Screenin:05 [facility] ED Fall Risk Assessment (Adult) History of falling in the last 3 months, rg5 including since admission No falls in past 3 months (0 pts) Confusion or Disorientation No (0 pts) Intoxicated or Sedated No (0 pts) Impaired Gait No (0 pts) Mobility Assist Device Used No (0 pt) Altered Elimination No (0 pt) Score/Fall Risk Level 0 - 2 = Low Risk Oriented to surroundings, Maintained a safe environment, Hourly rounding (assess needs \T\ fall precautionary measures) done. Abuse screen: Denies threats or abuse. Nutritional screening: No deficits noted. Tuberculosis screening: No symptoms or risk factors identified. Assessment: 00:05 Reassessment: see triage assessment. rg5 00:05 GI: Abdomen is round Abd is soft and non tender Reports lower abdominal pain, nausea. rg5 00:05 : Reports burning with urination, pain in right flank(s). rg5 01:00 Reassessment: No changes from previously documented assessment. Patient and/or family rg5 updated on plan of care and expected duration. Pain level reassessed. Patient is alert, oriented x 3, equal unlabored respirations, skin warm/dry/pink. 02:14 Reassessment: Patient and/or family updated on plan of care and expected duration. Pain rg5 level reassessed. Patient is alert, oriented x 3, equal unlabored respirations, skin warm/dry/pink. Patient states feeling better. Patient states symptoms have improved. Vital Signs: 00:05 BP 116 / 79; Pulse 79; Resp 18; Temp 98.7; Pulse Ox 98% ; Weight 75.5 kg; Height 5 ft. rg5 4 in. ; Pain 10/10; 00:05 BP 116 / 79; Pulse 79; Resp 17; Temp 98.7; Pulse Ox 98% ; Weight 75.5 kg; Height 5 ft. rg5 4 in. ; Pain 10/10; 02:12 BP 126 / 74; Pulse 87; Resp 17; Pulse Ox 98% on R/A; Pain 3/10; rg5 00:05 Body Mass Index 28.57 (75.50 kg, 162.56 cm) rg5 00:05 Pain Scale: Adult rg5 00:05 Pain Scale: Adult rg5 02:12 Pain Scale: Adult rg5 ED Course: 10/04 23:57 Patient arrived in ED. jj6 03/04 00:01 Luis Franco, NAIN is Primary Nurse. rg5 00:02 Srinivasan Noel FNP-C [facility]. dr5 00:02 Presley Becker MD is Attending Physician. dr5 00:05 Arm band placed on. rg5 00:05 Patient has correct armband on for positive identification. Door closed. Noise rg5 minimized. Warm blanket given. 00:05 No provider procedures requiring assistance completed. rg5 00:15 Inserted saline lock: 20 gauge in left antecubital area, using aseptic technique. Blood rg5 collected. Flushed with 10 mL NS. 00:18 Triage completed. rg5 00:[address] In Process Unspecified. EDMS 02:58 IV discontinued, bleeding controlled, No redness/swelling at site. Pressure dressing rg5 applied. Administered Medications: 00:30 Drug: Ondansetron IVP 4 mg IVP once; over 2 minutes Route: IVP; Site: left antecubital; rg5 01:25 Follow up: Response: No adverse reaction rg5 00:30 Drug: NS 0.9% IV 1000 ml IV at 1 bolus Per protocol; to be given as a bolus over 60 rg5 minutes Route: IV; Rate: 1 bolus; Site: left antecubital; 02:11 Follow up: IV Status: Completed infusion; IV Intake: 1000ml rg5 01:47 Drug: Rocephin IV 1 grams IV at per protocol once; Given slow IV push per pharmacy rg5 instructions Route: IV; Rate: per protocol; Site: left antecubital; 02:11 Follow up: IV Status: Completed infusion; IV Intake: 50ml rg5 02:14 Drug: morphine IVP or IV 4 mg IVP once over 4 mins Route: IVP; Infused Over: 4 mins; rg5 Site: left antecubital; 02:58 Follow up: Response: No adverse reaction; Pain is decreased rg5 02:39 Drug: Promethazine IVP 12.5 mg IVP once Route: IVP; Site: left antecubital; rg5 02:58 Follow up: Response: No adverse reaction rg5 Medication: 00:05 VIS not applicable for this client. rg5 Intake: 02:11 IV: 50ml; Total: 50ml. rg5 02:11 IV: 1000ml; Total: 1050ml. rg5 Outcome: 02:38 Discharge ordered by . sp3 02:59 Discharged to home ambulatory, rg5 02:59 Condition: stable 02:59 Discharge instructions given to patient, Instructed on discharge instructions, follow up and referral plans. Demonstrated understanding of instructions, follow-up care, medications, Prescriptions given X 3, 03:00 Patient left the ED. rg5 Signatures: Dispatcher [employer] EDMS Presley Becker MD MD sp3 Patience Garcia6 Luis Franco RN RN rg5 Srinivasan Noel, PROFESSOR OF RELIGION-C PROFESSOR OF RELIGION-[facility]5
[2024-10-05] MEDS ORDERED: PROMETHAZINE INJ 25 MG/ML AMP ONE (02:40)
[2024-10-05 03:10] VITALS: TEMP 98.7; O2SAT 98
[2024-10-05 03:16] VITALS: BP 126/74
== END 2024-10-05 03:00 | disposition home or self-care (01) ==
LOC: ER 23:55
DX: N20.9 Urinary calculus, unspecified (principal); Z87.442 Personal history of urinary calculi; F17.210 Nicotine dependence, cigarettes, uncomplicated
CPT/HCPCS: 96365; 96361; 87088; 85025; 81001; 87086; 36415; 81025; 83690; 80053; 76377; 74176; 96375; 99284; J2550; J2405; J7030; J0696